=== PATIENT | male | born 1945 | race Caucasian/White ===

== ENCOUNTER 2020-09-28 11:14 | Emergency (ER) | payer MEDICARE, SELFPAY ==
[2020-09-28 11:23] VITALS: BP 117/74; PULSE 89; RESP 16; TEMP 36.9; O2SAT 97
--- NOTE | 2020-09-28 11:45 | ED.WOUNDLAC ---
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 Sister indicates he sustained a minor skin abrasion to his right proximal forearm about a week ago. She now complains of a couple day history of increasing redness with scant crusting on the affected area. No fever, abscess/induration, streaking upward, other rashes. Symptoms are mild, and do not affect range of motion and strength Related Data Home Medications Medication Instructions Recorded Confirmed finasteride mg 09/28/20 mirabegron [Myrbetriq] mg PO 09/28/20 omeprazole 09/28/20 tamsulosin mg PO 09/28/20 tramadol mg 09/28/20 Allergies Allergy/AdvReac Type Severity Reaction Status Date / Time No Known Allergies Allergy Unknown Verified 08/28/15 13:05 Review of Systems Review of Systems: General/Constitutional: No weight loss,fever Eyes: N0: Redness,discharge Ears/Nose/Throat: No: Epistaxis,ear discharge Respiratory: Denies: Hemoptysis Gastrointestinal: No Vomiting, Bleeding-rectal Skin: No Lumps, REPORTS eruption Neurologic: No Focal Weakness,Sz Hematologic: Denies: Petechiae/Purpura Psychiatric: No: Suicida ideationl All Other Systems: Reviewed and Negative [facility] Family History Family History (Updated 01/06/18 @ 10:40 by DOCTOR UNKNOWN) Father Acute myocardial infarction, Onset Age: 47 Mother Acute myocardial infarction, Onset Age: 73 Social History Social History Smoking status: Never smoker Comments At time of signature, agree with nursing past medical, surgical, social and family history. There is no relevant family history pertinent to the presenting complaint Exam Narrative: General Appearance: consolable, Cooperative, Conjunctiva clear Ear: External ear normal Nose: Normal nose, Nare clear Mouth/Throat: Normal appearing Respiratory: Airway patent, No respiratory distress Skin: Warm, Dry; pink, warm, oval area of fairly healing, poorly approximated abrasion at the proximal right forearm, with crusting Neurological: Awake and alert Psychiatric: Normal mood, Normal affect-smiling Course Vital Signs Vital signs: Vital Signs Temperature 98.5 F 09/28/20 11:23 Pulse Rate 89 09/28/20 11:23 Respiratory Rate 16 09/28/20 11:23 Blood Pressure 117/74 09/28/20 11:23 Pulse Oximetry 97 09/28/20 11:23 Temperature 98.5 F 09/28/20 11:23 Pulse Rate 89 09/28/20 11:23 Respiratory Rate 16 09/28/20 11:23 Blood Pressure 117/74 09/28/20 11:23 Pulse Oximetry 97 09/28/20 11:23 Discharge Plan Discharge Clinical Impression: Pruritic condition Cellulitis Qualifiers: Site of cellulitis: extremity Site of cellulitis of extremity: upper extremity Laterality: right Qualified Code(s): L03.113 - Cellulitis of right upper limb Patient Disposition: Home, Self-Care Condition: Stable Instructions: Antibiotic Form, Cellulitis (ED) Additional Instructions: Take clindamycin with food, antiacid and/or probiotic; stop if diarrhea occurs Go to hospital if worsens Prescriptions: New clindamycin HCl 300 mg capsule 300 mg PO TID Qty: 20 RF: 0 mupirocin 2 % ointment 1 applic TOPICAL TID Qty: 30 RF: 2 No Action tramadol 50 mg tablet RF: 0 tamsulosin 0.4 mg capsule PO RF: 0 omeprazole 20 mg capsule,delayed release(DR/EC) RF: 0 finasteride 5 mg tablet RF: 0 Myrbetriq 25 mg tablet extended release 24 hr PO RF: 0 Follow-up/Referrals: Luly Alcala MD [Primary Care Provider] -
== END 2020-09-28 11:53 | disposition home or self-care (01) ==
PROVIDERS: Emergency Provider Emergency Medicine; PCP Internal Medicine
DX: L03.113 Cellulitis of right upper limb (principal); L29.9 Pruritus, unspecified; G80.9 Cerebral palsy, unspecified; Z99.3 Dependence on wheelchair
CPT/HCPCS: 99213; G0463

== ENCOUNTER 2020-09-30 10:56 | Emergency (ER) | payer MEDICARE, SELFPAY ==
[2020-09-30 11:02] VITALS: BP 128/86; PULSE 90; RESP 16; TEMP 36.7; O2SAT 99
--- NOTE | 2020-09-30 12:54 | ED.WOUNDLAC ---
HPI - Wound/Laceration General Chief Complaint: Wound/Laceration Stated Complaint: right arm wound Time Seen by Provider: 09/30/20 11:30 History of Present Illness HPI narrative: Patient is a 75-year-old male who presents with wound and cellulitis to right forearm. Patient's caregiver reports patient had small skin tear approximately 2 days ago. Patient continues to not leave dressing on and she reports increased redness. Patient was seen on 09/28/2020 for same and was started on clindamycin and Lopressor ointment. Caregiver is concerned with increased redness. Patient has taken 2 doses of clindamycin and using the reports from the ointment 1 time prior to arrival in the ED. Related Data Home Medications Medication Instructions Recorded Confirmed finasteride 5 mg PO DAILY 09/28/20 09/30/20 mirabegron [Myrbetriq] 25 mg PO DAILY 09/28/20 09/30/20 omeprazole 20 mg PO DAILY 09/28/20 09/30/20 tamsulosin 0.4 mg PO DAILY 09/28/20 09/30/20 tramadol 50 mg PO PRN 09/28/20 09/30/20 Allergies Allergy/AdvReac Type Severity Reaction Status Date / Time No Known Allergies Allergy Unknown Verified 09/30/20 11:02 Review of Systems Review of Systems: CONSTITUTIONAL: Denies fever, chills, or sweats. EYES: Denies visual changes, redness, or discharge. ENT: Denies rhinorrhea, congestion, sore throat, or otalgia. CARDIOVASCULAR: Denies chest pain, palpitations, or edema. RESPIRATORY: Denies cough or dyspnea. GASTROINTESTINAL: Denies abdominal pain, nausea, vomiting, or diarrhea. GENITOURINARY: Denies dysuria or hematuria. SKIN: Skin tear and redness to right forearm MUSCULOSKELETAL: Denies back pain, joint pain, or myalgia. NEUROLOGIC: Denies headache, numbness, dizziness, or weakness. PSYCHIATRIC: Denies anxiety or depression. [facility] Past Medical History Medical History Anxiety Arthritis Constipation GERD (gastroesophageal reflux disease) Incontinence No natural teeth Nonverbal Perforated ulcer Seizures Septic bursitis Sinusitis Urinary retention Family History Family History Father Acute myocardial infarction, Onset Age: 47 Mother Acute myocardial infarction, Onset Age: 73 Social History Social History (Updated 09/30/20 @ 12:59 by KESHIA hCeek) Smoking status: Never smoker Alcohol intake: never Substance use: never Living arrangements: with family Exam Narrative: GENERAL: Well-appearing, well-nourished, and in no acute distress. HEAD: Normocephalic, atraumatic. EYES: EOMI. No redness or drainage. Conjunctiva are normal. ENT: Mucous membranes pink and moist. CHEST: No respiratory distress. HEART: Regular rate and rhythm. EXTREMITIES: Normal range of motion. No edema. SKIN: Warm and dry. Approximate 6 cm area of erythema and warmth to right forearm, small healing skin tear crusting noted. NEURO: No focal deficits. Alert and oriented x3. Gait steady. PSYCH: Normal affect. No signs of depression or anxiety. Course Vital Signs Vital signs: Vital Signs Temperature 36.7 C 09/30/20 11:02 Pulse Rate 90 09/30/20 11:02 Respiratory Rate 16 09/30/20 11:02 Blood Pressure 128/86 09/30/20 11:02 Pulse Oximetry 99 09/30/20 11:02 Temperature 36.7 C 09/30/20 11:02 Pulse Rate 90 09/30/20 11:02 Respiratory Rate 16 09/30/20 11:02 Blood Pressure 128/86 09/30/20 11:02 Pulse Oximetry 99 09/30/20 11:02 Reviewed. Patient has been instructed to follow-up with his PCP regarding his blood pressure. MDM - Wound/Laceration MDM Narrative Medical decision making narrative: Area of erythema on right forearm, marked. Discussed with patient's mica splitter to continue to monitor for increased redness swelling. Instructed to continue p.o. antibiotics and topical this patient has only been taking for the past day. Patient is afebrile, nontoxic in appear
== END 2020-09-30 13:10 | disposition home or self-care (01) ==
PROVIDERS: Emergency Provider Nurse Practitioner; PCP Internal Medicine
DX: L03.113 Cellulitis of right upper limb (principal); S51.812A Laceration without foreign body of left forearm, initial encounter; M19.90 Unspecified osteoarthritis, unspecified site; K21.9 Gastro-esophageal reflux disease without esophagitis; R03.0 Elevated blood-pressure reading, without diagnosis of hypertension; X58.XXXA Exposure to other specified factors, initial encounter
CPT/HCPCS: 99281

== ENCOUNTER 2021-08-25 01:55 | Day surgery (SDC) | payer MEDICARE, SELFPAY ==
[2021-08-06 14:33] VITALS: BMI 20.3
--- NOTE | 2021-08-25 11:49 | WPDGICN ---
Assessment and Plan Assessment and plan (1) Weight loss: Code(s): R63.4 - Abnormal weight loss Status: Acute Assessment and Plan: Patient referred for GI endoscopy because of weight loss. Colonoscopy an EGD will be performed on request primary care service. (2) Chronic constipation: Code(s): K59.09 - Other constipation Status: Acute Assessment and Plan: Patient reports reported only have 1 bowel movement a week. Stool softener such as Colace and Metamucil advised to be taken on a regular basis. (3) Mental deficiency: Code(s): F79 - Unspecified intellectual disabilities Status: Acute Assessment and Plan: Patient nonverbal unable to give additional history reported to have mental deficiency since . GI Consult Note Consult date/time: 08/25/21 11:49 Reason for consult: weight loss HPI: Harry Hensley is a 76 year old male with a history of mental retardation. He has a financial retirement plan specialist who reports that his clothes are becoming baggy. The patient has had weight loss. She states she is unable to weigh him but estimates he has lost more than 15lb over the last year to. He apparently has a good appetite. There is no reason to suspect pain. Patient is nonverbal and history is obtained with the help of his caregiver. Patient's bowel habits revealed that he only has a bowel movement 1 day a week. This has been his habit for more than 20 years. She reports 20 years ago had surgery in his abdomen felt that possibly be from an ulcer. Patient has had no obvious blood in his stools. Eats well and has no pain referred for GI endoscopy because weight loss. Review of Systems Review of Systems: Review of systems from caregiver and patient noncontributory. [facility] Past Medical History Medical History Anxiety Arthritis Constipation GERD (gastroesophageal reflux disease) Incontinence No natural teeth Nonverbal Perforated ulcer Seizures Septic bursitis Sinusitis Urinary retention Family History Family History Father Acute myocardial infarction, Onset Age: 47 Mother Acute myocardial infarction, Onset Age: 73 Social History Social History (Updated 09/30/20 @ 12:59 by Maylin Galvez, KESHIA) Smoking status: Never smoker Alcohol intake: never Substance use: never Substance use type: does not use Living arrangements: with family Additional living arrangements comments: sister is caregiver Spiritual care concerns: No Meds Home Medications and Allergies Home Medications Medication Instructions Recorded Confirmed Type finasteride 5 mg tablet 5 mg PO DAILY 09/28/20 08/06/21 History omeprazole 20 mg capsule,delayed 20 mg PO DAILY 09/28/20 08/06/21 History release tamsulosin 0.4 mg capsule 0.4 mg PO DAILY 09/28/20 08/06/21 History tramadol 50 mg tablet 50 mg PO PRN 09/28/20 08/06/21 History alendronate 70 mg-cholecalciferol 1 tablet PO WEEKLY 08/06/21 08/06/21 History (vitamin D3) 5,600 unit tablet Allergies Allergy/AdvReac Type Severity Reaction Status Date / Time No Known Allergies Allergy Unknown Verified 08/25/21 11:48 Exam Narrative: Physical exam reveals patient to be comfortable sitting in a wheelchair. HEENT exam reveals him to be nonverbal. He is anicteric. Lungs are clear to auscultation and percussion. Heart is without murmur. Abdomen bowel sounds present soft nontender with no organomegaly. Healedmidline scar. Digital external rectal exam normal.
[2021-08-25 11:50] VITALS: BP 155/78; PULSE 74; RESP 18; TEMP 36.8; O2SAT 98
--- NOTE | 2021-08-25 11:53 | SUR.PREOP ---
Patient unable to stand on his own- unable to obtain weight.
[2021-08-25] MEDS: LACTATED RINGERS 1,000 ML 150 ML IV CONT (11:57)
--- NOTE | 2021-08-25 11:59 | WPDANESEPPF ---
Anes - Initial Pre Proc Eval Procedure: Operation Date: 08/25/21 12:30 Proposed Procedures p Esophagogastroduodenoscopy & Colonoscopy - Richard Godfrey MD Date/Time: 08/25/21 11:59 Surgeon: Richard Godfrey MD Pre Op Diagnosis: weight loss, change in bowel habits Patient Data Age: 76 Gender: M Height: 1.7 m Weight: 59 kg Last Vital Signs Temp 98.3 F 08/25/21 11:50 Pulse 74 08/25/21 11:50 Resp 18 08/25/21 11:50 BP 155/78 H 08/25/21 11:50 Pulse Ox 98 08/25/21 11:50 O2 Del Method Room Air 08/25/21 11:50 Allergies Allergy/AdvReac Type Severity Reaction Status Date / Time No Known Allergies Allergy Unknown Verified 08/25/21 11:48 Home Medications Medication Instructions Recorded Confirmed Type finasteride 5 mg tablet 5 mg PO DAILY 09/28/20 08/06/21 History omeprazole 20 mg capsule,delayed 20 mg PO DAILY 09/28/20 08/06/21 History release tamsulosin 0.4 mg capsule 0.4 mg PO DAILY 09/28/20 08/06/21 History tramadol 50 mg tablet 50 mg PO PRN 09/28/20 08/06/21 History alendronate 70 mg-cholecalciferol 1 tablet PO WEEKLY 08/06/21 08/06/21 History (vitamin D3) 5,600 unit tablet Patient hx anesthesia problems: none Family hx anesthesia problems: none Results Review: All pre-operative results and documents have been reviewed as part of the pre-operative evaluation. [facility] Past Medical History Medical History Anxiety Arthritis Constipation GERD (gastroesophageal reflux disease) Incontinence No natural teeth Nonverbal Perforated ulcer Seizures Septic bursitis Sinusitis Urinary retention Family History Family History Father Acute myocardial infarction, Onset Age: 47 Mother Acute myocardial infarction, Onset Age: 73 Social History Social History (Updated 09/30/20 @ 12:59 by Maylin Galvez, KESHIA) Smoking status: Never smoker Alcohol intake: never Substance use: never Substance use type: does not use Living arrangements: with family Additional living arrangements comments: sister is caregiver Spiritual care concerns: No Anes - Eval Final PreProcedure Day of Procedure 08/25/21 11:59 Patient weight: normal Heart: regular rate and rhythm Lungs: clear to auscultation Airway: Mallampati scale class II Neurological: alert and oriented Last oral intake: >/= 8 hours ASA classification: III Emergent: no Anesthetic plan: proceed Anesthesia type and monitoring: general GIVS and standard monitoring Results Review: All pre-operative results and documents have been reviewed as part of the pre-operative evaluation. Informed Consent: The patient's anesthetic plan and its attendant risks and benefits were discussed with the patient/family/POA. Questions were solicited and answers provided to the satisfaction of the patient/family/POA.
[2021-08-25 12:41] VITALS: BP 109/63; PULSE 78; RESP 19; O2SAT 96
[2021-08-25 12:51] VITALS: BP 105/64; PULSE 73; RESP 16; O2SAT 94
[2021-08-25 13:01] VITALS: BP 121/68; PULSE 69; RESP 14; O2SAT 97
== END 2021-08-25 13:24 | disposition home or self-care (01) ==
PROVIDERS: PCP Internal Medicine; Visit Provider Internal Medicine Gastroenterology
PROC: 0DJ08ZZ Inspection of Upper Intestinal Tract, Via Natural or Artificial Opening Endoscopic (ICD-10-PCS; CPT 43235; principal; 2021-08-25 12:30)
DX: R63.4 Abnormal weight loss (principal); K29.40 Chronic atrophic gastritis without bleeding; R19.5 Other fecal abnormalities; F41.9 Anxiety disorder, unspecified; K21.9 Gastro-esophageal reflux disease without esophagitis; G40.909 Epilepsy, unspecified, not intractable, without status epilepticus; K59.09 Other constipation; F79 Unspecified intellectual disabilities
CPT/HCPCS: 45378; 43235; J2001; J2704; J7120

== ENCOUNTER 2021-10-14 01:45 | Day surgery (SDC) | payer MEDICARE, SELFPAY ==
[2021-09-25 14:09] VITALS: BMI 25.4
--- NOTE | 2021-10-14 09:05 | SUR.PREOP ---
Patient with sister and personal counselor. Sister states he only drank half of the golytely bowel prep and then refused the rest. He has had two bowel movements. Dr Godfrey at bedside and instructed to follow up with primary doctor to discuss other options.
== END 2021-10-14 09:05 | disposition home or self-care (01) ==
PROVIDERS: PCP Internal Medicine; Visit Provider Internal Medicine Gastroenterology
PROC: 0DJD8ZZ Inspection of Lower Intestinal Tract, Via Natural or Artificial Opening Endoscopic (ICD-10-PCS; CPT 45378; principal; 2021-10-14 09:30)
DX: K59.09 Other constipation (principal); Z53.8 Procedure and treatment not carried out for other reasons
CPT/HCPCS: 99211; G0463

== ENCOUNTER 2022-02-09 11:46 | Outpatient (CLI) | payer MEDICARE, SELFPAY ==
[2022-02-09 20:55] LABS: Kit Draw Collected
== END 2022-02-09 11:47 | disposition home or self-care (01) ==
LOC: ANHGOSHLAB 11:48
PROVIDERS: PCP Emergency Medicine; Visit Provider Emergency Medicine
DX: R73.02 Impaired glucose tolerance (oral) (principal)
CPT/HCPCS: 36415

== ENCOUNTER → 2022-02-17 09:46 | Outpatient (CLI) | payer MEDICARE, SELFPAY ==
--- NOTE | ~2022-02-17 | CT_ITS ---
Clinical Indication: Abnormal weight loss CT Scan of the Chest, Abdomen, and Pelvis without Contrast: Technique: Contiguous sections were acquired throughout the chest, abdomen, and pelvis without oral o r IV contrast administration. Dose reduction technique was used on this scan by utilizing automated e xposure control and iterative reconstruction technique. The dose-length product (DLP) was 582.59 mGy- cm. Findings: There is no evidence of any significant mediastinal, hilar or axillary lymphadenopathy. The mediastin al soft tissues appear normal. There is no evidence of pleural or pericardial effusion. The lungs are clear, aside from minimal dependent atelectatic/hypoventilatory changes. The liver, spleen, pancreas, adrenals and kidneys are within normal limits. Gallbladder not clearly v isualized. No evidence of aortic aneurysm. No lymphadenopathy. No bowel obstruction or bowel wall thickening. There is no evidence to suggest acute appendicitis. Urinary bladder is unremarkable. Prostate gland and seminal vesicles are unremarkable. 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 Impression: No acute abnormality seen. No evidence for malignancy or metastatic disease. Reviewed, dictated and finalized at [facility]. BOSS Impression: No acute abnormality seen. No evidence for malignancy or metastatic disease.
== END ==
PROVIDERS: PCP Emergency Medicine; Visit Provider Emergency Medicine
DX: R63.4 Abnormal weight loss (principal)
CPT/HCPCS: 71250; 74176

== ENCOUNTER 2022-07-14 10:16 | Outpatient (CLI) | payer MEDICARE, SELFPAY ==
--- NOTE | ~2022-07-14 | XR_ITS ---
EXAMINATION: XR barium swallow DATE: 07/14/2022 11:00 INDICATION: Choking while eating and drinking. TECHNIQUE: The patient drank thin barium. Fluoroscopy of the hypopharynx and esophagus was performed. Fluoroscopy exposure time was 0.9 minutes. The total number of images was 264. The dose-area product was 0.845 Gy-cm^2. COMPARISON: CT 02/17/2022 FINDINGS: There is aspiration of contrast, which caused coughing. There is no mass or stricture of th e esophagus. There is normal primary and secondary esophageal peristalsis. Abnormal tertiary waves we re noted. There is no hiatal hernia. IMPRESSION: 1. Aspiration of contrast. Consider a modified barium swallow. 2. Mild esophageal dysmotility. Reviewed, dictated and finalized at location A.
== END 2022-07-14 10:17 | disposition home or self-care (01) ==
PROVIDERS: PCP Emergency Medicine; Visit Provider Nurse Practitioner Family
DX: R13.10 Dysphagia, unspecified (principal); K30 Functional dyspepsia
CPT/HCPCS: 74220

== ENCOUNTER 2022-08-15 15:47 | Emergency (ER) | payer MEDICARE, SELFPAY ==
[2022-08-15 15:57] VITALS: BP 118/80; PULSE 92; RESP 16; TEMP 36.7; O2SAT 98
--- NOTE | 2022-08-15 16:17 | ED.SKABFB ---
HPI - Skin/Abscess/Foreign Bdy General Chief complaint: Skin/Abscess/Foreign Body Stated complaint: R ARM INJURY Time Seen by Provider: 08/15/22 16:20 Source: patient, RN notes reviewed and old records reviewed Mode of arrival: wheelchair Limitations: no limitations History of Present Illness HPI narrative: 77 year old male accompanied by sister who is patient's caregiver presents to express care with complaint of new skin tear to the right lower anterior arm which was noted earlier this past week. Patient was seen previously for a skin tear to right forearm at [facility] clinic at site above present site which is healing. Tissue of new skin tear appears that it may of been blister but able to pull upper tissue over wound with use of Q-TIP and triple antibiotic ointment, no drainage noted. Sister is caregiver and patient has history of mental retardation and is nonverbal.able to stand to transfer only, is in wheelchair. MD complaint: other (skin tear) Onset (ago): day(s) (3-4 days ago) Tetanus up to date: no Treatments prior to arrival: other (cleansed mupirocin ointment) Related Data Home Medications Medication Instructions Recorded Confirmed alendronate 70 mg-cholecalciferol 1 tablet PO WEEKLY 08/06/21 08/15/22 (vitamin D3) 5,600 unit tablet mupirocin 2 % topical ointment See Rx Instructions .Route .COMPLEX 08/10/22 08/15/22 Allergies Allergy/AdvReac Type Severity Reaction Status Date / Time No Known Allergies Allergy Unknown Verified 08/10/22 10:26 Review of Systems Review of Systems: CONSTITUTIONAL: Denies fever, chills, or sweats. CARDIOVASCULAR: Denies chest pain, palpitations, or edema. RESPIRATORY: Denies cough or dyspnea. SKIN: Reports new skin tear type wound to right anterior lower forearm distal to previous wound MUSCULOSKELETAL: Denies joint pain or myalgia. NEUROLOGIC: Denies headache, numbness, or weakness. All systems reviewed & are unremarkable except as noted in HPI and below PMFSH Past Medical History Medical History (Updated 08/17/22 @ 09:46 by Siri Carbone NP) Anxiety Arthritis Constipation GERD (gastroesophageal reflux disease) Incontinence No natural teeth Nonverbal Perforated ulcer required surgery Seizures Septic bursitis Sinusitis Urinary retention Family History Family History Father Acute myocardial infarction, Onset Age: 47 Mother Acute myocardial infarction, Onset Age: 73 Social History Social History Smoking status: Never smoker Alcohol intake: never Substance use: never Substance use type: does not use Lack of Transportation: No Lack of Food: Never True Current Housing: I Have Housing Concerned About Future Housing: No Difficulty Paying Gas/Electric Bills: No Difficulty Paying for Meds: No Currently Unemployed: No Education: Never Attended/Kindergarten Only Living arrangements: other Additional living arrangements comments: lives with legal guardian Spiritual care concerns: No Comments At time of signature, agree with nursing past medical, surgical, social and family history. There is no relevant family history pertinent to the presenting complaint Exam Narrative: GENERAL: Well-appearing, well-nourished, and in no acute distress.is nonverbal HEAD: Normocephalic, atraumatic. EYES: PERRLA, conjunctivae clear, and EOMI. ENT: Mucous membranes moist. Oropharynx without edema, erythema or lesions. edentulous NECK: Supple. No lymphadenopathy CHEST: Clear to auscultation. No respiratory distress.SAO2 98% on room air HEART: Regular rate and rhythm. SKIN: Warm, dry.? 25 cent piece size area to right posterior lower arm wound appears may of been blister but able to pull top layer of skin over wound bed using Q-tip and triple antibiotic ointment, no drainage noted or acute surrounding redness o
[2022-08-15] MEDS: TETANUS,DIPHTHERIA,AC PERTUSSIS ADULT (0.5 ML) BOOSTRIX IM (16:50)
== END 2022-08-15 17:04 | disposition home or self-care (01) ==
PROVIDERS: Emergency Provider Registered Nurse; PCP Emergency Medicine
DX: S51.811A Laceration without foreign body of right forearm, initial encounter (principal); X58.XXXA Exposure to other specified factors, initial encounter; Z23 Encounter for immunization; F79 Unspecified intellectual disabilities; K21.9 Gastro-esophageal reflux disease without esophagitis
CPT/HCPCS: 90471; 90715; 99213; G0463

== ENCOUNTER 2022-08-17 11:33 | Observation (INO) | payer MEDICARE, SELFPAY ==
[2022-08-17] VITALS (10 sets, daily range): BP systolic 112–140; BP diastolic 68–74; PULSE 73–94; RESP 11–19; TEMP 36.2–37.1; O2SAT 92–98; BMI 20.1
--- NOTE | 2022-08-17 12:11 | ED.EXTPRO ---
HPI - Extremity Problem General Chief complaint: Extremity Problem,Nontraumatic Stated complaint: right arm swelling/redness Time Seen by Provider: 08/17/22 11:54 History of Present Illness HPI Narrative: 77-year-old male presented to the emergency department for evaluation of worsening cellulitis of the right arm. Patient was started on topical antibiotics approximately 1 week ago and the infection did not resolve. Patient had worsening of infection and was started on oral antibiotics over the weekend, doxycycline. Sister states that today the patient has had worsening swelling and redness even after starting antibiotics. Related Data Home Medications Medication Instructions Recorded Confirmed alendronate 70 mg-cholecalciferol 1 tablet PO WEEKLY 08/06/21 08/17/22 (vitamin D3) 5,600 unit tablet tramadol 50 mg tablet See Rx Instructions .Route .COMPLEX 08/17/22 08/17/22 Allergies Allergy/AdvReac Type Severity Reaction Status Date / Time No Known Allergies Allergy Unknown Verified 08/17/22 14:46 Review of Systems Review of Systems: All systems reviewed & are unremarkable except as noted in HPI and below PMFSH Past Medical History Medical History (Updated 08/17/22 @ 22:02 by Bar Vyas MD) Anxiety Arthritis BPH (benign prostatic hyperplasia) Constipation GERD (gastroesophageal reflux disease) Incontinence No natural teeth Nonverbal Perforated ulcer required surgery Seizures Septic bursitis Sinusitis Urinary retention Surgical History Surgical History (Updated 08/17/22 @ 22:00 by Camelia Jane NP) H/O oral surgery Family History Family History Father Acute myocardial infarction, Onset Age: 47 Mother Acute myocardial infarction, Onset Age: 73 Social History Social History Social History: He lives with his sister. Never smoked. He is mentally challenged. Code status full code Smoking status: Never smoker Alcohol intake: never Substance use: never Substance use type: does not use Lack of Transportation: No Lack of Food: Never True Current Housing: I Have Housing Concerned About Future Housing: No Difficulty Paying Gas/Electric Bills: No Difficulty Paying for Meds: No Currently Unemployed: No Education: Never Attended/Kindergarten Only Difficulty w/ Childcare or Family Care: No Living arrangements: other Additional living arrangements comments: lives with legal guardian Spiritual care concerns: No Exam Narrative: APPEARANCE: Well appearing, no pain, no distress, well-nourished. HEAD: normocephalic, atraumatic. EYES: PERRLA/EOMI, conjunctivae clear. NOSE: Normal no drainage NECK: Supple. No adenopathy, no masses. RESPIRATORY: Airway patent, respirations nonlabored. Clear to auscultation bilaterally, no rales, rhonchi, wheezing. CARDIOVASCULAR: Regular rate and rhythm without murmurs rubs or gallops. ABDOMINAL: Soft, nontender, nondistended, normal bowel sounds MUSCULOSKELETAL: Moves all extremities. Strength/ROM intact, No edema, No calf tenderness. NEURO: Alert. Cranial nerves II through XII intact. Grossly intact SKIN: Circumferential erythema/cellulitis of the right forearm Course Course Emergency Course: 77-year-old male presenting to the ED for evaluation of worsening cellulitis of the right forearm. Blood cultures were drawn and patient was started on cefazolin. Patient and family were updated on the results of the work-up and plan for admission for IV antibiotics. Case was discussed with hospitalist and patient was accepted for admission Vital Signs Vital signs: Vital Signs Temperature 97.1 F L 08/17/22 11:37 Pulse Rate 94 08/17/22 11:37 Respiratory Rate 16 08/17/22 11:37 Blood Pressure 112/70 08/17/22 11:37 Pulse Oximetry 96 08/17/22 11:37 Temperature 98.4 F
[2022-08-17] MEDS: ceFAZolin 1 GM/NS 50 ML 1 GM/50 ML BAG IVPB ×2 (12:32→21:56)
[2022-08-17 12:39] LABS: Basophils Percent Auto 0.6 % (0.2-1.2); Eosinophils Absolute Auto 0.1 K/mm3 (0-0.3); Eosinophils Percent Auto 2.1 % (0-4.4); Hematocrit 43.5 % (42.0-52.0); Hemoglobin 14.6 g/dL (14.0-18.0); Immature Granulocyte Absolute 0.02 K/mm3 (0.00-0.031); Immature Granulocyte Percent A 0.4 % (0-0.5); Lymphocytes Absolute Auto 0.99 K/mm3 (0.9-3.2); Lymphocytes Percent Auto 20.4 % (18.3-44.2); Mean Corpuscular HGB Conc 33.6 g/dl (32-36); Mean Corpuscular Hemoglobin 31.5 pg (26-34); Mean Corpuscular Volume 93.8 fl (80-100); Monocytes Absolute Auto 0.6 K/mm3 (0.1-0.6); Monocytes Percent Auto 11.5 % (2.6-8.5); Neutrophils Absolute Auto 3.2 K/mm3 (1.3-6.7); Platelet Count Result 166 k/mm3 (150-375); Red Blood Count 4.64 M/mm3 (4.6-6.20); Red Cell Distribution Width 13.6 % (11.5-14.5); White Blood Count 4.9 K/mm3 (4.5-10.0)
[2022-08-17 12:49] LABS: INR 1.1; Partial Thromboplastin Time 30.1 SECONDS (22.3-36.8); Prothrombin Time 14.3 Seconds (11.1-14.7)
[2022-08-17 12:50] LABS: Alanine Aminotransferase 19 U/L (6-50); Albumin Level 3.7 g/dL (3.5-5.1); Alkaline Phosphatase 83 U/L (38-126); Anion Gap 0 mmol/L (8-16); Aspartate Amino Transferase 29 U/L (17-59); Bilirubin,Total 2.9 mg/dL (0.2-1.3); Blood Urea Nitrogen 19 mg/dL (9-20); CRP < 0.5 mg/dL (<1.0); Calcium 8.4 mg/dL (8.4-10.2); Carbon Dioxide 32 mmol/L (22-30); Chloride 107 mmol/L (98-107); Estimated CRCL calculation 70 ml/min; Estimated Glomerular Filt Rate > 60; Glucose 74 mg/dL (65-110); Potassium 4.1 mmol/L (3.4-5.0); Sodium 139 mmol/L (137-145)
--- NOTE | 2022-08-17 14:17 | ADMGEN ---
This patient, Harry Hensley, was admitted to Medical Room 261-01. Patient/family oriented to hospital policies and general routines including ID bracelet, bed and alarms, visiting hours, pain management, procedures, bathroom and other care routines, personal items, smoking policy, room service/diet, and visiting hours. Information on how to activate the Rapid Response Team has been discussed. Patient/Family are encouraged to report perceived risks to care and to ask questions if they do not understand what they are told or what they should do.
--- NOTE | 2022-08-17 16:31 | PM.IMHP ---
H&P: HPI History of Present Illness Date/Time: 08/17/22 16:31 Chief Complaint: Redness to right arm Narrative: This is a 77-year-old mentally delayed patient who is nonverbal. The patient came into the emergency room for worsening cellulitis of the right arm. The patient has been placed on mupirocin ointment and has been using it for the last week. The patient lives with his sister who cares for him. His sister stated that the redness continue to get worse. The patient was started on oral antibiotics over the weekend which was doxycycline. Today there is worsened swelling and redness even after starting the oral antibiotics. The patient's sister's answering the questions for him. Although he has no leukocytosis he has extensive redness throughout the right forearm. The patient was started on Ancef as per cellulitis antibiotic stewardship. Patient is being admitted to observation status on the date of service of 08/17/2022. Review of Systems Review of Systems: All systems reviewed & are unremarkable except as noted in HPI and below Constitutional: Constitutional: Reports as per HPI and Reports no additional constitutional complaints Eyes: Eyes: Reports as per HPI and Reports no additional eye complaints ENT: Reports system reviewed and no additional complaints, except as documented and Reports Normal hearing present Cardiovascular: Cardiovascular: Reports no additional cardiovascular complaints Respiratory: Respiratory: Reports no additional respiratory complaints and Reports no additional respiratory complaints Gastrointestinal: Gastrointestinal: Reports as per HPI and Reports no additional gastrointestinal complaints Musculoskeletal: Musculoskeletal: Reports no additional musculoskeletal complaints Integumentary/Breasts: Skin/Breast: Reports system reviewed and no additional complaints, except as docu and Reports as per HPI Neurologic: Reports system reviewed and no additional complaints, except as documented, Reports as per HPI and Reports Normal hearing present Psychiatric: Psychiatric: Reports no additional psychiatric complaints and Reports as per HPI Endocrine: Endocrine: Reports no additional endocrine complaints Hematologic/Lymphatic: Hematologic/Lymphatic: Reports no additional hematologic/lymphatic complaints Allergic/Immunologic: Allergic/Immunologic: Reports no additional allergic/immunologic complaints [facility] Past Medical History Medical History (Updated 08/17/22 @ 22:02 by Bar Vyas MD) Anxiety Arthritis BPH (benign prostatic hyperplasia) Constipation GERD (gastroesophageal reflux disease) Incontinence No natural teeth Nonverbal Perforated ulcer required surgery Seizures Septic bursitis Sinusitis Urinary retention Surgical History Surgical History (Updated 08/17/22 @ 22:00 by Camelia Jane NP) H/O oral surgery Family History Family History Father Acute myocardial infarction, Onset Age: 47 Mother Acute myocardial infarction, Onset Age: 73 Social History Social History (Updated 08/17/22 @ 22:01 by Camelia Jane NP) Social History: He lives with his sister. Never smoked. He is mentally challenged. Code status full code Smoking status: Never smoker Alcohol intake: never Substance use: never Substance use type: does not use Lack of Transportation: No Lack of Food: Never True Current Housing: I Have Housing Concerned About Future Housing: No Difficulty Paying Gas/Electric Bills: No Difficulty Paying for Meds: No Currently Unemployed: No Education: Never Attended/Kindergarten Only Difficulty w/ Childcare or Family Care: No Living arrangements: other Additional living arrangements comments: lives with legal guardian Spiritual care concerns: No Meds Home Medications and Allergies Home Medications Medication Instructions Recorded Confir
[2022-08-17] MEDS: MUPIROCIN 2% OINT 22 GM TUBE 1 APPLIC TOPICAL (21:55)
[2022-08-17] MEDS: traMADol HCL (*CRX) 50 MG TABLET BY MOUTH (21:56)
[2022-08-18 04:55] VITALS: BP 143/76; PULSE 89; RESP 16; TEMP 37.1; O2SAT 96
[2022-08-18] MEDS: HALOPERIDOL LACTATE 5 MG/ML VIAL IM (05:08)
[2022-08-18 05:57] LABS: Basophils Percent Auto 0.3 % (0.2-1.2); Eosinophils Absolute Auto 0.1 K/mm3 (0-0.3); Eosinophils Percent Auto 1.4 % (0-4.4); Hematocrit 41.8 % (42.0-52.0); Hemoglobin 14.2 g/dL (14.0-18.0); Immature Granulocyte Absolute 0.03 K/mm3 (0.00-0.031); Immature Granulocyte Percent A 0.5 % (0-0.5); Lymphocytes Absolute Auto 0.99 K/mm3 (0.9-3.2); Lymphocytes Percent Auto 15.3 % (18.3-44.2); Mean Corpuscular Hemoglobin 31.4 pg (26-34); Mean Corpuscular Volume 92.5 fl (80-100); Mean Platelet Volume 9.3 fl (7.4-10.4); Monocytes Absolute Auto 0.7 K/mm3 (0.1-0.6); Monocytes Percent Auto 10.6 % (2.6-8.5); Neutrophils Absolute Auto 4.7 K/mm3 (1.3-6.7); Neutrophils Percent Auto 71.9 % (45.5-73.1); Platelet Count Result 143 k/mm3 (150-375); Red Blood Count 4.52 M/mm3 (4.6-6.20); Red Cell Distribution Width 13.2 % (11.5-14.5); White Blood Count 6.5 K/mm3 (4.5-10.0)
[2022-08-18 06:06] LABS: Alanine Aminotransferase 19 U/L (6-50); Albumin Level 3.5 g/dL (3.5-5.1); Alkaline Phosphatase 86 U/L (38-126); Anion Gap 4 mmol/L (8-16); Aspartate Amino Transferase 31 U/L (17-59); Bilirubin,Total 3.4 mg/dL (0.2-1.3); Blood Urea Nitrogen 16 mg/dL (9-20); Calcium 8.3 mg/dL (8.4-10.2); Carbon Dioxide 28 mmol/L (22-30); Chloride 106 mmol/L (98-107); Estimated CRCL calculation 76 ml/min; Estimated Glomerular Filt Rate > 60; Glucose 88 mg/dL (65-110); Magnesium 1.9 mg/dL (1.6-2.3); Potassium 3.5 mmol/L (3.4-5.0); Sodium 138 mmol/L (137-145)
[2022-08-18] MEDS: ceFAZolin 1 GM/NS 50 ML 1 GM/50 ML BAG IVPB (06:10)
[2022-08-18 06:16] LABS: Lactic Acid Reflex 1.1 mmol/L (0.7-2.0)
[2022-08-18] MEDS: MUPIROCIN 2% OINT 22 GM TUBE 1 APPLIC TOPICAL (08:00)
[2022-08-18] MEDS: FINASTERIDE 5 MG TABLET PO (08:01)
[2022-08-18] MEDS: PANTOPRAZOLE 40 MG TABLET PO (08:01)
[2022-08-18] MEDS: TAMSULOSIN HCL 0.4 MG CAPSULE 0.8 MG PO (08:01)
[2022-08-18] MEDS: traMADol HCL (*CRX) 50 MG TABLET BY MOUTH (08:02)
--- NOTE | 2022-08-18 11:29 | PM.DS ---
DS: Admitting Diagnosis Discharge Date August 18, 2022 Admitting Diagnosis Right arm cellulitis DS: Discharge Diagnosis Discharge Diagnosis (1) Cellulitis: Code(s): L03.90 - Cellulitis, unspecified Status: Acute Assessment and Plan: Continue with Ancef. Blood cultures are pending. The patient had been prescribed mupirocin and doxycycline outpatient. The patient failed outpatient therapy. (2) BPH (benign prostatic hyperplasia): Code(s): N40.0 - Benign prostatic hyperplasia without lower urinary tract symptoms Status: Acute Assessment and Plan: Continue with finasteride (3) Severe intellectual disabilities: Code(s): F72 - Severe intellectual disabilities Status: Acute Assessment and Plan: The patient's sister's answering the questions for him. The patient is mostly nonverbal. DS: Summary Hospital Course Hospital Course: Admitted for right arm cellulitis. Patient received Ancef in the hospital and did exceptionally well. Swelling and erythema is much improved. He can be discharged on Bactrim. Time Spent with Patient Time attestation: Total time spent providing and/or coordinating discharge services: Exam Const: General: cooperative, healthy appearing, comfortable, no acute distress, well developed, alert, awake, Physically active, average body habitus and thin Nutritional Appearance: average body habitus and thin Orientation/consciousness: oriented to person, oriented to place, oriented to time and patient oriented x3 Limitations: no limitations HENMT: Head: normal to inspection, No palpable skull fracture present, normocephalic and atraumatic Ears: hearing grossly normal bilaterally and external ears normal Face/Nose/Sinus: Normal external nose present and Normal nares present Eyes: General: appearance normal, both eyes and all related structures Alignment and Position: alignment normal Periorbital: periorbital findings normal Eyelids: eyelids normal Sclera: sclerae normal Pupils: Equal, round and reactive pupils present EOM: EOMs intact bilaterally Neck: Neck: normal visual inspection, full ROM, no lymphadenopathy, trachea midline and supple Chest: Chest palpation & inspection: normal inspection of the chest Resp: Effort & Inspection: normal respiratory effort Auscultation: clear to auscultation bilaterally Cardio: Palpation: normal PMI Rate: regular rate Rhythm: regular rhythm Heart sounds: S1 normal heart sound present and S2 normal heart sound present Peripheral pulses: Peripheral pulses 2+ throughout GI: Inspection: normal to inspection Auscultation: normal bowel sounds Rectal Exam: deferred Back/Spine/Pelvis: Cervical Spine: cervical ROM normal Skin: General skin exam: normal color Lesions: no lesions Rashes: no rashes Trauma: no lacerations or abrasions Wounds: no wounds Hair: normal Nails: normal Neuro: General: oriented to person, oriented to place, oriented to time and patient oriented x3 Cranial nerves: Yes Equal, round and reactive pupils present and Yes Normal hearing present Cognition (Neuro): normal cognition Speech: normal speech Motor exam (neuro): 5/5 motor strength present throughout Sensory Exam: normal sensation Extrem: General: normal to inspection Right upper extremity: elbow/forearm (Redness throughout right forearm. No drainage noted.) tenderness and swelling Left upper extremity: normal to inspection and shoulder/upper arm Right lower extremity: normal to inspection Left lower extremity: normal to inspection Psych: Appearance: grossly normal Mental Status: mental status grossly normal Speech and movement: Normal speech and movement present Affect: normal affect Attitude: cooperative Thought process: Normal thought process present Insight: Good insight present (Psych) Judgement: Good judgement present (Psych) DS: Data Data Completed and Pending Labs on day of discharge: Labs from last 24 hours 06
== END 2022-08-18 12:09 | disposition home or self-care (01) ==
LOC: ANHED 12:21 → ANH2MED 13:24
PROVIDERS: Nurse Practitioner; Admitting Provider Chiropractor; Emergency Provider Emergency Medicine; PCP Emergency Medicine; Visit Provider Chiropractor
DX: L03.113 Cellulitis of right upper limb (principal); B96.20 Unspecified Escherichia coli [E. coli] as the cause of diseases classified elsewhere; N40.0 Benign prostatic hyperplasia without lower urinary tract symptoms; F72 Severe intellectual disabilities; F41.9 Anxiety disorder, unspecified; K21.9 Gastro-esophageal reflux disease without esophagitis; Z79.891 Long term (current) use of opiate analgesic; Z79.899 Other long term (current) drug therapy
CPT/HCPCS: 36415; 80053; 83605; 83735; 84443; 85025; 85610; 85730; 86140; 87040; 87070; 87077; 87186; 87205; 96365; 96366; 96372; 99285; A9270; G0378; J0690; J1630

== ENCOUNTER 2022-08-30 11:27 | Emergency (ER) | payer MEDICARE, SELFPAY ==
[2022-08-30] VITALS (18 sets, daily range): BP systolic 120–164; BP diastolic 63–93; PULSE 77–101; RESP 13–26; TEMP 36.3; O2SAT 98–100
--- NOTE | 2022-08-30 13:34 | PC.NURSE ---
Pt's family states since the beginning of the week he has been dealing with increased frequency and pain while urinating. Pt wears a depends and family states that he has had two full diapers since arriving to ED. Pt is non verbal. Hx MR, hip issues on left hip.
--- NOTE | 2022-08-30 14:17 | ED.MALEGU ---
HPI - Male Genitourinary General Chief complaint: Urogenital-Male Stated complaint: uti? Time Seen by Provider: 08/30/22 13:23 History of Present Illness HPI Narrative: Patient is a 77-year-old male nonverbal at baseline due to intellectual delay presenting with increased urinary frequency. Patient's sister is at bedside and provides the history. She is his primary caregiver. States that he has been urinating much more frequently than normal. States that he has accidentally wet himself a couple times. States that he has also been more tired than usual. He has not complained of abdominal pain. No nausea or vomiting. No diarrhea. States he was recently treated for cellulitis which has resolved. Related Data Home Medications Medication Instructions Recorded Confirmed alendronate 70 mg-cholecalciferol 1 tablet PO WEEKLY 08/06/21 08/17/22 (vitamin D3) 5,600 unit tablet tramadol 50 mg tablet See Rx Instructions .Route .COMPLEX 08/17/22 08/17/22 Allergies Allergy/AdvReac Type Severity Reaction Status Date / Time No Known Allergies Allergy Unknown Verified 08/30/22 13:39 Review of Systems Review of Systems: All systems reviewed & are unremarkable except as noted in HPI and below PMFSH Past Medical History Medical History Anxiety Arthritis BPH (benign prostatic hyperplasia) Constipation GERD (gastroesophageal reflux disease) Incontinence No natural teeth Nonverbal Perforated ulcer required surgery Seizures Septic bursitis Sinusitis Urinary retention Surgical History Surgical History H/O oral surgery Family History Family History Father Acute myocardial infarction, Onset Age: 47 Mother Acute myocardial infarction, Onset Age: 73 Social History Social History Social History: He lives with his sister. Never smoked. He is mentally challenged. Code status full code Smoking status: Never smoker Alcohol intake: never Substance use: never Substance use type: does not use Lack of Transportation: No Lack of Food: Never True Current Housing: I Have Housing Concerned About Future Housing: No Difficulty Paying Gas/Electric Bills: No Difficulty Paying for Meds: No Currently Unemployed: No Education: Never Attended/Kindergarten Only Difficulty w/ Childcare or Family Care: No Living arrangements: other Additional living arrangements comments: lives with legal guardian Spiritual care concerns: No Exam Narrative: GENERAL: Nontoxic, in no acute distress HEAD: Normocephalic, atraumatic. EYES: PERRLA and EOMI. ENT: Nares clear, no rhinorrhea or epistaxis. Mucous membranes moist. Edentulous NECK: Supple. CHEST: No respiratory distress. HEART: Regular rate and rhythm ABDOMEN: Soft, nontender, nondistended EXTREMITIES: Normal range of motion. No edema. SKIN: Warm, dry, no rash. NEURO: No focal deficits. Nonverbal which is baseline PSYCH: Normal mood and affect. Course Vital Signs Vital signs: Vital Signs Temperature 97.4 F L 08/30/22 11:28 Pulse Rate 87 08/30/22 11:28 Respiratory Rate 16 08/30/22 11:28 Blood Pressure 120/63 08/30/22 11:28 Pulse Oximetry 98 08/30/22 11:28 Temperature 97.4 F L 08/30/22 11:28 Pulse Rate 97 08/30/22 16:17 Respiratory Rate 16 08/30/22 16:17 Blood Pressure 158/93 H 08/30/22 16:17 Pulse Oximetry 100 08/30/22 16:17 MDM - Male Genitourinary MDM Narrative Medical decision making narrative: Patient is a 77-year-old male presenting with increased urinary frequency. Vitals within normal limits. Exam remarkable for the above. No abdominal tenderness. Patient is overall well-appearing. Mucous membranes are moist. He appears well-hydrated.
[2022-08-30 14:57] LABS: Appearance Urine Turbid (Clear); Bacteria Urine 4+ /hpf; Bilirubin Urine Negative (Negative); Blood Urine 2+ (Negative); Color Urine Yellow (Yellow); Glucose Urine UA Negative (Negative); Ketones Urine Negative (Negative); Leukocyte Esterase Ur 3+ LEU/UL (Negative); Need Manual Microscopic Reviewed; Nitrate Urine Negative (Negative); Protein Urine 2+ mg/dL (Negative); Specific Grav Ur 1.017 (1.001-1.035); Squamous Epithelial Cell Urine None seen /hpf (Few); WBC Urine >100 /hpf; pH Urine 6.5 (5.0-9.0)
[2022-08-30 15:00] LABS: Add Urine Microscopic? YES
[2022-08-30] MEDS: CEPHALEXIN 500 MG CAPSULE PO (15:04)
== END 2022-08-30 16:28 | disposition home or self-care (01) ==
PROVIDERS: General Practice; Emergency Provider Emergency Medicine; PCP Emergency Medicine
DX: N39.0 Urinary tract infection, site not specified (principal); F41.9 Anxiety disorder, unspecified; M19.90 Unspecified osteoarthritis, unspecified site; K21.9 Gastro-esophageal reflux disease without esophagitis; G40.909 Epilepsy, unspecified, not intractable, without status epilepticus
CPT/HCPCS: 81001; 87077; 87086; 87186; 99283; A9270

== ENCOUNTER 2022-09-04 09:50 | Outpatient (CLI) | payer MEDICARE, SELFPAY ==
--- NOTE | ~2022-09-04 | XR_ITS ---
EXAMINATION: XR barium swallow modified DATE: 09/04/2022 10:44 INDICATION: Dysphagia, unspecified. TECHNIQUE: The patient was given barium-containing material of multiple consistencies to swallow by t rickey speech pathologist while I performed fluoroscopy. Fluoroscopy exposure time was 1.4 minutes. The n umber of fluoroscopy images saved to the PACS was 1. Dose-area product was 0.93 Gy-cm^2. FINDINGS: There is reduced laryngeal elevation, reduced laryngeal adduction, reduced tongue base retraction, va llecular residue, and laryngeal penetration. There is aspiration of thin liquids without cough. IMPRESSION: 1. Aspiration of thin liquids. 2. Please refer to the speech therapy report for recommendations. Reviewed, dictated and finalized at location A.
--- NOTE | 2022-09-04 16:41 | REHSTMBS ---
Assessment and note entered by Namita Chance, LOG HANDLER Modified Barium Swallow Evaluation Feeding Type Recommended Oral Food Consistency Minced and Moist, Level 5 Liquid Consistency Mildly Thick (2) ST Clinical Summary MODIFIED BARIUM SWALLOW STUDY This patient was seen for a Modified Barium Swallow study at the request of his physician in order to assess his risk for aspiration. Sister, Anne, who was present reported the patient has a history of Cerebral Palsy. She reports that she has to chop and cut up all of his foods in order to avoid choking episodes and that he will, himself, take large bites which she is afraid makes him choke. Patient was viewed in an upright position to the level of C5/C6. Patient exhibited trace penetration on two small sips of thin liquid contrast medium per spoon, but increased penetration with aspiration was noted on the uncontrolled thin liquid per cup. He did exhibit good ability to consume the pudding/semi-solid consistency and the small pieces of natalie cracker mixed with the semi-solid consistency. Patient tended to take large sips from the cup and was also observed placing head in partially extended position. A cough was eventually noted. The following impairments were observed: --Oral Stage: None, just lack of dentition which will affect diet recommendations. --Pharyngeal Stage: *Reduced base of tongue retraction allowing material to spillover the base of tongue into the valleculae and eventually the pyriform sinuses prior to eliciting a swallow. *Reduced laryngeal elevation contributing to reduced epiglottal inversion and penetration of thin liquids into the upper laryngeal vestibule prior to swallowing and also contributing to vallecular residue after the swallows. *Reduced laryngeal adduction as patient did not feel the aspiration or cough until later, which did clear some of the pooled material. Results indicate this patient would benefit from
== END 2022-09-04 09:51 | disposition home or self-care (01) ==
PROVIDERS: PCP Emergency Medicine; Visit Provider Nurse Practitioner Family
DX: R13.10 Dysphagia, unspecified (principal)
CPT/HCPCS: 92611

== ENCOUNTER 2022-09-11 12:33 | Outpatient (CLI) | payer MEDICARE, SELFPAY ==
[2022-09-11 20:28] LABS: Appearance Urine Turbid (Clear); Bacteria Urine 4+ /hpf; Bilirubin Urine Negative (Negative); Blood Urine 1+ (Negative); Color Urine Yellow (Yellow); Glucose Urine UA Negative (Negative); Ketones Urine Negative (Negative); Leukocyte Esterase Ur 3+ LEU/UL (Negative); Need Manual Microscopic Reviewed; Nitrate Urine Positive (Negative); Protein Urine 2+ mg/dL (Negative); Specific Grav Ur 1.018 (1.001-1.035); Squamous Epithelial Cell Urine None seen /hpf (Few); WBC Urine >100 /hpf; pH Urine 7.5 (5.0-9.0)
[2022-09-11 20:56] LABS: Add Urine Microscopic? YES
== END 2022-09-11 12:34 | disposition home or self-care (01) ==
PROVIDERS: PCP Emergency Medicine; Visit Provider Emergency Medicine
DX: Q65.9 Congenital deformity of hip, unspecified (principal); N30.00 Acute cystitis without hematuria
CPT/HCPCS: 81001; 87077; 87086; 87186

== ENCOUNTER → 2022-09-11 13:22 | Outpatient (CLI) | payer MEDICARE, SELFPAY ==
--- NOTE | ~2022-09-11 | XR_ITS ---
EXAMINATION: XR hip BI 2V w AP pelvis DATE: 09/11/2022 13:45 INDICATION: Congenital deformity of the bilateral hips, pain TECHNIQUE: AP view the pelvis and two views of each hip were obtained. COMPARISON: CT, 02/17/2022 FINDINGS: Limited bone alignment is normal. There is no fracture. There is mild osteoarthritis of the hips. Phleboliths are noted in the pelvis. There is a bone island in the right iliac wing. Calcified atherosclerosis is noted. IMPRESSION: 1. Mild osteoarthritis of the hips. Reviewed, dictated and finalized at location B.
== END ==
PROVIDERS: PCP Emergency Medicine; Visit Provider Emergency Medicine
DX: Q65.9 Congenital deformity of hip, unspecified (principal); M16.0 Bilateral primary osteoarthritis of hip
CPT/HCPCS: 73521

== ENCOUNTER 2022-11-19 10:22 | Outpatient (CLI) | payer MEDICARE, SELFPAY ==
[2022-11-19 15:11] LABS: Alanine Aminotransferase 22 U/L (6-50); Albumin Level 3.9 g/dL (3.5-5.1); Alkaline Phosphatase 101 U/L (38-126); Aspartate Amino Transferase 41 U/L (17-59); Bilirubin,Total 1.9 mg/dL (0.2-1.3)
== END 2022-11-19 10:23 | disposition home or self-care (01) ==
PROVIDERS: PCP Emergency Medicine; Visit Provider Emergency Medicine
DX: R17 Unspecified jaundice (principal)
CPT/HCPCS: 36415; 80076

== ENCOUNTER 2022-11-23 09:41 | Outpatient (CLI) | payer MEDICARE, SELFPAY ==
--- NOTE | ~2022-11-23 | US_ITS ---
US abdomen complete EXAMINATION: US Abdomen Complete INDICATION: Jaundice PROCEDURE: Realtime High Resolution abdomen ultrasound. COMPARISON: No prior studies for comparison FINDINGS: Gallbladder within normal limits. No gallstones, pericholecystic fluid, gallbladder wall t hickening or biliary dilatation. Common bile duct measures 6 mm. Liver echotexture within normal limits without focal mass. Pancreas within normal limits. Pancreati c tail is obscured by bowel gas. Spleen is unremarkeable. Renal echotexture is within normal limits bilaterally without hydronephrosis, contour deforming mass or renal stone. Right kidney measures 8.6 cm. Left kidney measures 11 cm. Visualized aspects of the aorta and IVC are within normal limits. Portal vein is patent. No sonograph ic Ambrocio's sign indicated by the technologist. IMPRESSION: 1: Normal abdominal ultrasound. Reviewed, dictated and finalized at location B.
== END 2022-11-23 09:42 ==
LOC: GOSHIMG 09:42
PROVIDERS: PCP Emergency Medicine; Visit Provider Emergency Medicine
DX: R17 Unspecified jaundice (principal)
CPT/HCPCS: 76700

== ENCOUNTER 2023-01-30 10:37 | Emergency (ER) | payer MEDICARE, SELFPAY ==
--- NOTE | ~2023-01-30 | CT_ITS ---
EXAMINATION: CT brain wo con DATE: 01/30/2023 13:05 INDICATION: Head injury bruising to the left arm post fall TECHNIQUE: Computed tomography (CT) of the head was performed without intravenous contrast. Sagittal and coronal reconstructions were performed. The mA was adjusted according to patient size. Iterative reconstruction technique was employed. The dose-length product was 681.00 mGy-cm. COMPARISON: head CT dated 06/22/2017 FINDINGS: No fracture. Acute intracranial hemorrhage, acute infarction or abnormal extra axial fluid collection . Small region of encephalomalacia in right frontal lobe likely sequela of chronic infarct. There is some focal ex vacuo dilation along the underlying anterior horn of the right lateral ventricle. Ventr icles are otherwise normal and symmetric. Symmetric prominence of the sulci consistent with mild age- appropriate diffuse cerebral volume loss. No mass/mass effect. Changes of bilateral intraocular lens replacement. The orbits, paranasal sinuses and mastoid air cells are normal. IMPRESSION: 1. No fracture or acute intracranial process. 2. 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 Reviewed, dictated and finalized at location A. ENT CARE DIRECTOR
--- NOTE | ~2023-01-30 | CT_ITS ---
EXAMINATION: CT facial & cervical spine wo DATE: 01/30/2023 13:05 INDICATION: Status post fall. Facial injury. TECHNIQUE: Computed tomography (CT) of the maxillofacial region and cervical spine was performed with out intravenous contrast. The dose-length product was 199.59 mGy-cm. Automated exposure control and i terative reconstruction technique were employed. COMPARISON: None FINDINGS: MAXILLOFACIAL CT: Study limited by motion artifact. No nasal fracture. Orbits are unremarkable. There is significant mo tion of the mandible limiting evaluation for nondisplaced fracture. Temporomandibular joints are symm etric. No acute zygomatic arch fracture. Lamina papyracea are intact bilaterally. Pterygoid plates wi thin normal limits. No significant soft tissue abnormality. There is a mucous retention cyst of the l eft maxillary sinus. CERVICAL SPINE CT: There is reversal of cervical lordosis. There are severe degenerative disc disease with endplate hype rtrophy at all cervical spine levels. There is degenerative anterolisthesis at C4-5. Odontoid process is unremarkable. Craniovertebral junction within normal limits. There is levoscoliosis. There is sev ere multilevel facet and uncinate hypertrophy. No acute fracture or traumatic malalignment. IMPRESSION: 1. No acute fracture. Limited evaluation of the facial bones due to motion. 2: Severe cervical spondylosis. Reviewed, dictated and finalized at location A. METALS ENGRAVER HAND
[2023-01-30 10:49] VITALS: BP 143/77; PULSE 74; RESP 18; TEMP 36.9; O2SAT 98
--- NOTE | 2023-01-30 12:20 | ED.FALL ---
HPI - Fall General Chief Complaint: Fall Stated Complaint: fall/facial injury Time Seen by Provider: 01/30/23 11:17 Source: family and RN notes reviewed Mode of arrival: wheelchair Limitations: physical limitation History of Present Illness HPI Narrative: This is 77 year old male with history of intellectual disability , nonverbal who presents with family for evaluation of fall. His caregiver reports patient was trying to lean over in his wheelchair to pick something up, and fell yesterday. She states she is unsure what he hit his head or face on. She noticed he has cut by left eye yesterday but the bleeding has stopped. She noticed left periorbital bruising so she brought him to ER for assessment. He is nonverbal . She states she has not noticed bruising or any other injury. He has not been acting as if he is in pain. Related Data Home Medications Medication Instructions Recorded Confirmed alendronate 70 mg-cholecalciferol 1 tablet PO WEEKLY 08/06/21 12/11/22 (vitamin D3) 5,600 unit tablet Allergies Allergy/AdvReac Type Severity Reaction Status Date / Time No Known Allergies Allergy Unknown Verified 01/30/23 10:53 Review of Systems Review of Systems: ROS unobtainable: Yes unobtainable due to medical condition PMFSH Past Medical History Medical History Anxiety Arthritis BPH (benign prostatic hyperplasia) Constipation GERD (gastroesophageal reflux disease) Incontinence No natural teeth Nonverbal Perforated ulcer required surgery Seizures Septic bursitis Sinusitis Urinary retention Surgical History Surgical History H/O oral surgery Family History Family History Father Acute myocardial infarction, Onset Age: 47 Mother Acute myocardial infarction, Onset Age: 73 Social History Social History Social History: He lives with his sister. Never smoked. He is mentally challenged. Code status full code Smoking status: Never smoker Alcohol intake: never Substance use: never Substance use type: does not use Lack of Transportation: No Lack of Food: Never True Current Housing: I Have Housing Concerned About Future Housing: No Difficulty Paying Gas/Electric Bills: No Difficulty Paying for Meds: No Currently Unemployed: No Education: Never Attended/Kindergarten Only Difficulty w/ Childcare or Family Care: No Living arrangements: other Additional living arrangements comments: lives with legal guardian Spiritual care concerns: No Exam Const: General: no acute distress and alert Other: nonverbal HENMT: Mouth: Yes lip normal and Yes moist mucous membranes Throat: posterior oropharynx normal and uvula midline Other: endentulous, left periorbital ecchymosis Eyes: Conjunctivae: conjunctivae normal Pupils: Equal, round and reactive pupils present EOM: EOMs intact bilaterally Other: left perorbital ecchymosis Chest: Chest palpation & inspection: normal inspection of the chest Resp: Effort & Inspection: normal respiratory effort Auscultation: clear to auscultation bilaterally Cardio: Rate: regular rate Rhythm: regular rhythm Heart sounds: no murmurs Skin: Wounds: wounds noted (left eye lid with superficial laceration, closed, no drainage, no bleeding) Psych: Mental Status: mental status grossly normal Attitude: cooperative Course Reevaluation(s) Reevaluation #1: I Discussed no acute injury and I Discussed discharge plan Date: 01/30/23 Time: 14:38 Vital Signs Vital signs: Vital Signs Temperature 98.5 F 01/30/23 10:49 Pulse Rate 74 01/30/23 10:49 Respiratory Rate 18 01/30/23 10:49 Blood Pressure 143/77 H 01/30/23 10:49 Pulse Oximetry 98 01/30/23 10:49 Oxygen Deliver
== END 2023-01-30 14:50 | disposition home or self-care (01) ==
PROVIDERS: Emergency Provider General Practice; PCP Emergency Medicine
DX: S00.12XA Contusion of left eyelid and periocular area, initial encounter (principal); N40.1 Benign prostatic hyperplasia with lower urinary tract symptoms; R33.8 Other retention of urine; K21.9 Gastro-esophageal reflux disease without esophagitis; M19.90 Unspecified osteoarthritis, unspecified site; F79 Unspecified intellectual disabilities; M47.812 Spondylosis without myelopathy or radiculopathy, cervical region; W05.0XXA Fall from non-moving wheelchair, initial encounter
CPT/HCPCS: 70450; 70486; 72125; 99284

== ENCOUNTER 2023-03-27 15:46 | Emergency (ER) | payer MEDICARE, SELFPAY ==
--- NOTE | ~2023-03-27 | XR_ITS ---
EXAM: XR elbow LT min 3V DATE: 03/27/2023 16:21 HISTORY: fall 2 days ago, swelling to posterior elbow, pain worse w/ . COMPARISON: None available. FINDINGS: Normal mineralization. No fracture or dislocation. No lytic or blastic lesion. Joint space s are maintained. No erosion or periosteal change. Marked soft tissue swelling over the olecranon. IMPRESSION: No acute osseous finding in the left elbow. Olecranon hematoma/bursitis. Reviewed, dictated and finalized at location K. WASH OPERATOR IMPRESSION: No acute osseous finding in the left elbow. Olecranon hematoma/burs itis.
[2023-03-27 15:46] VITALS: BP 140/71; PULSE 80; RESP 14; TEMP 37; O2SAT 95
--- NOTE | 2023-03-27 16:10 | ED.UPPEXIN ---
HPI - Extremity Injury (Upper) General Chief Complaint: Extremity Injury, Upper Stated Complaint: left elbow injury Time Seen by Provider: 03/27/23 15:56 History of Present Illness HPI narrative: 78 yo M with PMHx of CP, developmental delay, non-verbal, chronic pain, presents to ED with his sister due to a fall. Now sister noted that his left elbow is red and swollen. There's some abrasion on the skin of the left elbow as well. He has history of olecranon bursitis in the past. Pt is otherwise normal and does not complain of any pain. MD complaint: injury to: left and elbow Onset (ago): day(s) Other Extremity Injury: Left: elbow Other injuries: none Place: home Severity: moderate Related Data Home Medications Medication Instructions Recorded Confirmed alendronate 70 mg-cholecalciferol 1 tablet PO WEEKLY 08/06/21 03/27/23 (vitamin D3) 5,600 unit tablet Allergies Allergy/AdvReac Type Severity Reaction Status Date / Time No Known Allergies Allergy Unknown Verified 03/27/23 15:58 Review of Systems Review of Systems: All systems reviewed & are unremarkable except as noted in HPI and below PMFSH Past Medical History Medical History Anxiety Arthritis BPH (benign prostatic hyperplasia) Constipation GERD (gastroesophageal reflux disease) Incontinence No natural teeth Nonverbal Perforated ulcer required surgery Seizures Septic bursitis Sinusitis Urinary retention Surgical History Surgical History H/O oral surgery Family History Family History Father Acute myocardial infarction, Onset Age: 47 Mother Acute myocardial infarction, Onset Age: 73 Social History Social History Social History: He lives with his sister. Never smoked. He is mentally challenged. Code status full code Smoking status: Never smoker Alcohol intake: never Substance use: never Substance use type: does not use Lack of Transportation: No Lack of Food: Never True Current Housing: I Have Housing Concerned About Future Housing: No Difficulty Paying Gas/Electric Bills: No Difficulty Paying for Meds: No Currently Unemployed: No Education: Never Attended/Kindergarten Only Difficulty w/ Childcare or Family Care: No Living arrangements: other Additional living arrangements comments: lives with legal guardian Spiritual care concerns: No Exam Const: General: no acute distress and alert Nutritional Appearance: well nourished Other: At baseline mental status HENMT: Head: normal to inspection Chest: Chest palpation & inspection: normal inspection of the chest Resp: Effort & Inspection: normal respiratory effort Auscultation: clear to auscultation bilaterally Cardio: Rate: regular rate Rhythm: regular rhythm Skin: General skin exam: normal color Extrem: Other: Left posterior elbow swollen, erythematous. Superficial abrasion noted on skin. Course Vital Signs Vital signs: Vital Signs Temperature 98.6 F 03/27/23 15:46 Pulse Rate 80 03/27/23 15:46 Respiratory Rate 14 03/27/23 15:46 Blood Pressure 140/71 03/27/23 15:46 Pulse Oximetry 95 03/27/23 15:46 Oxygen Delivery Room Air 03/27/23 15:46 Temperature 98.6 F 03/27/23 15:46 Pulse Rate 80 03/27/23 15:46 Respiratory Rate 14 03/27/23 15:46 Blood Pressure 140/71 03/27/23 15:46 Pulse Oximetry 95 03/27/23 15:46 Oxygen Delivery Room Air 03/27/23 15:46 Procedures Abscess I/D upper extremity: Date of Incision: 03/27/23 Time of Incision: 17:00 Side (if applicable): left (Olecranon bursa) Sedation/analgesia: none Local Anesthetic: none Technique: needle aspiration Amount of fluid expressed (mL):
[2023-03-27 17:04] VITALS: BP 138/79; PULSE 77; RESP 12; TEMP 36.9; O2SAT 96
== END 2023-03-27 17:04 | disposition home or self-care (01) ==
PROVIDERS: Emergency Provider Emergency Medicine; PCP Emergency Medicine
DX: M70.22 Olecranon bursitis, left elbow (principal)
CPT/HCPCS: 10060; 20605; 73080; 99283

== ENCOUNTER 2023-06-21 08:40 | Outpatient (CLI) | payer MEDICARE, SELFPAY ==
[2023-06-21 09:25] LABS: Basophils Percent Auto 0.6 % (0.2-1.2); Eosinophils Percent Auto 0.2 % (0-4.4); Hematocrit 47.7 % (42.0-52.0); Hemoglobin 15.3 g/dL (14.0-18.0); Immature Granulocyte Absolute 0.03 K/mm3 (0.00-0.031); Immature Granulocyte Percent A 0.5 % (0-0.5); Lymphocytes Absolute Auto 1.07 K/mm3 (0.9-3.2); Lymphocytes Percent Auto 17.3 % (18.3-44.2); Mean Corpuscular HGB Conc 32.1 g/dl (32-36); Mean Corpuscular Hemoglobin 31.1 pg (26-34); Mean Platelet Volume 9.9 fl (7.4-10.4); Monocytes Absolute Auto 0.6 K/mm3 (0.1-0.6); Neutrophils Absolute Auto 4.5 K/mm3 (1.3-6.7); Neutrophils Percent Auto 72.4 % (45.5-73.1); Platelet Count Result 160 k/mm3 (150-375); Red Blood Count 4.92 M/mm3 (4.6-6.20); Red Cell Distribution Width 13.5 % (11.5-14.5); White Blood Count 6.2 K/mm3 (4.5-10.0)
[2023-06-21 09:30] LABS: Alanine Aminotransferase 20 U/L (6-50); Albumin Level 4.2 g/dL (3.5-5.1); Alkaline Phosphatase 115 U/L (38-126); Anion Gap 3 mmol/L (4-12); Aspartate Amino Transferase 30 U/L (17-59); Bilirubin,Total 2.7 mg/dL (0.2-1.3); Blood Urea Nitrogen 20 mg/dL (9-20); Calcium 9.8 mg/dL (8.4-10.2); Carbon Dioxide 31 mmol/L (22-30); Chloride 108 mmol/L (98-107); Cholesterol 177 mg/dL (0-200); Estimated Glomerular Filt Rate > 60; Glucose 95 mg/dL (65-110); HDL Direct 55 mg/dL; Potassium 3.8 mmol/L (3.4-5.0); Sodium 142 mmol/L (137-145); Triglycerides 50 mg/dL (<150)
[2023-06-21 09:40] LABS: LDL Cholesterol Direct 118 mg/dL
[2023-06-21 10:16] LABS: Prostate Specific Antigen 0.5 ng/mL (< OR = 4.0)
[2023-06-21 10:18] LABS: Hemoglobin A1C 4.8 % (<5.7)
== END 2023-06-21 08:41 | disposition home or self-care (01) ==
LOC: ANHLAB 08:42
PROVIDERS: PCP Emergency Medicine; Visit Provider Emergency Medicine
DX: R63.4 Abnormal weight loss (principal); E78.00 Pure hypercholesterolemia, unspecified; R73.02 Impaired glucose tolerance (oral); N40.0 Benign prostatic hyperplasia without lower urinary tract symptoms; Z12.5 Encounter for screening for malignant neoplasm of prostate
CPT/HCPCS: 36415; 80053; 80061; 83036; 84153; 85025; G0103

== ENCOUNTER 2023-08-08 09:35 | Emergency (ER) | payer MEDICARE, SELFPAY ==
--- NOTE | ~2023-08-08 | XR_ITS ---
[[id number] ] INDICATION: Left rib pain after fall TECHNIQUE: Frontal projection of the upper left ribs, frontal projection of the lower left ribs, obli que projection of all the left ribs, frontal inspiratory chest x-ray for interpretation. FINDINGS: There are no displaced rib fractures identified. There are no soft tissue abnormality see n. The lungs are clear. 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 There is a nond isplaced left eighth rib fracture. No pneumothorax. There is bibasilar atelectasis. IMPRESSION: 1: Nondisplaced acute left eighth rib fracture. Healed left seventh rib fracture.. Reviewed, dictated and finalized at location B. IMPRESSION: 1: Nondisplaced acute left eighth rib fracture. Healed left seventh rib fractur eEmily.
[2023-08-08 09:38] VITALS: BP 141/75; PULSE 81; RESP 18; TEMP 36.4; O2SAT 98
--- NOTE | 2023-08-08 09:55 | PC.NURSE ---
Pts visitor states pt fell in the bathroom, possibly on Wednesday.
--- NOTE | 2023-08-08 10:36 | ED.GENADULT ---
HPI - General Adult General Chief complaint: Fall Stated complaint: right rib pain Time Seen by Provider: 08/08/23 09:57 History of Present Illness HPI narrative: 78-year-old male with severe cerebral palsy who is nonverbal presenting with his family for rib pain. Patient's wild animal caretaker said that she was transferring him from the toilet when he slid off the toilet and hit his ribs on the left side. Since then she believes he has been having pain on left side whenever she touches him. Otherwise he is acting normal with no changes in behavior. Related Data Home Medications Medication Instructions Recorded Confirmed alendronate 70 mg-cholecalciferol 1 tablet PO WEEKLY 08/06/21 04/16/23 (vitamin D3) 5,600 unit tablet Allergies Allergy/AdvReac Type Severity Reaction Status Date / Time doxycycline AdvReac Mild Rash Uncoded 08/08/23 09:43 [facility] Past Medical History Medical History Anxiety Arthritis BPH (benign prostatic hyperplasia) Constipation GERD (gastroesophageal reflux disease) Incontinence No natural teeth Nonverbal Perforated ulcer required surgery Seizures Septic bursitis Sinusitis Urinary retention Surgical History Surgical History H/O oral surgery Family History Family History Father Acute myocardial infarction, Onset Age: 47 Mother Acute myocardial infarction, Onset Age: 73 Social History Social History Social History: He lives with his sister. Never smoked. He is mentally challenged. Code status full code Smoking status: Never smoker Alcohol intake: never Substance use: never Substance use type: does not use Lack of Transportation: No Lack of Food: Never True Current Housing: I Have Housing Concerned About Future Housing: No Difficulty Paying Gas/Electric Bills: No Difficulty Paying for Meds: No Currently Unemployed: No Education: Never Attended/Kindergarten Only Difficulty w/ Childcare or Family Care: No Living arrangements: other Additional living arrangements comments: lives with legal guardian Spiritual care concerns: No Exam Narrative: APPEARANCE: severe cerebral palsy with contractures, nonverbal Head: atraumatic. EYES: EOMI, NOSE: Atraumatic NECK: Trachea midline RESPIRATORY: No increased rate of breathing, CTAB CARDIOVASCULAR: RRR, No peripheral edema ABDOMINAL: Non-distended soft nontender MUSCULOSKELETAl: No tenderness to palpation with the left ribcage NEURO: Alert. Moving 4/4 extremities SKIN:: Warm, dry. Normal color PSYCHIATRIC: Normal affect Course Vital Signs Vital signs: Vital Signs Temperature 97.6 F 08/08/23 09:38 Pulse Rate 81 08/08/23 09:38 Respiratory Rate 18 08/08/23 09:38 Blood Pressure 141/75 H 08/08/23 09:38 Pulse Oximetry 98 08/08/23 09:38 Oxygen Delivery Room Air 08/08/23 09:38 Temperature 97.6 F 08/08/23 09:38 Pulse Rate 81 08/08/23 09:38 Respiratory Rate 18 08/08/23 09:38 Blood Pressure 141/75 H 08/08/23 09:38 Pulse Oximetry 98 08/08/23 09:38 Oxygen Delivery Room Air 08/08/23 09:38 Medical Decision Making MDM Narrative Medical decision making narrative: -Course: 78-year-old male with cerebral palsy presenting left rib pain. X-ray showed a isolated left rib fracture. no pneumothorax hemothorax. Patient pain has been treated . family was educated the incentive spirometer. Patient has been discharged with pain medication and return precautions for pneumonia. -DDX includes but is not limited to: Rib fracture, rib contusion pneumothorax -Co-morbidities complicating care: severe severe palsy -Social determinants of health: disabled, all ADLs performed by caretakers -Hx from independent Sources: marylin
[2023-08-08] MEDS: ACETAMINOPHEN 500 MG TABLET 1000 MG PO (11:10)
[2023-08-08] MEDS: IBUPROFEN 400 MG TABLET 800 MG PO (11:10)
[2023-08-08] MEDS: LIDOCAINE 5% PATCH 1 PATCH TRANSDERM (11:11)
== END 2023-08-08 11:13 | disposition home or self-care (01) ==
PROVIDERS: Emergency Provider Emergency Medicine; PCP Emergency Medicine
DX: S22.32XA Fracture of one rib, left side, initial encounter for closed fracture (principal); G80.9 Cerebral palsy, unspecified; F41.9 Anxiety disorder, unspecified; M19.90 Unspecified osteoarthritis, unspecified site; K21.9 Gastro-esophageal reflux disease without esophagitis; G40.909 Epilepsy, unspecified, not intractable, without status epilepticus; W18.11XA Fall from or off toilet without subsequent striking against object, initial encounter
CPT/HCPCS: 71101; 99283; A9270

== ENCOUNTER 2023-08-21 01:55 | Emergency (ER) | payer MEDICARE, SELFPAY ==
--- NOTE | ~2023-08-21 | XR_ITS ---
XR chest 1V portable DATE: 08/21/2023 02:25 INDICATION: Weakness TECHNIQUE: Portable upright AP chest on 08/21/2023 at 0220 hours COMPARISON: 02/17/2022 CT chest abdomen pelvis 01/03/2018 2 view chest FINDINGS: Increased density overlying the left hemithorax may be due to positioning, skin fold. Consi gustavo PA and lateral projections of possible, CT thorax if necessary. Mild infiltrate or atelectasis at the lung bases. Chronic volume loss of the left lung compared to the right. Heart size appears normal. No pleural effusion or pulmonary vascular congestion or pneumothorax. Dextroscoliosis of the thoracic spine. Osteopenia. IMPRESSION: Increased density projecting over the left chest, likely due to positioning, overlapping soft tissues; PA and lateral upright views are recommended, CT thorax if necessary Bilateral lower lung infiltrate and/or atelectasis Osteopenia Thoracic dextroscoliosis Reviewed, dictated and finalized at location A. IMPRESSION: Increased density projecting over the left chest, likely due to pos itioning, overlapping soft tissues; PA and lateral upright views are recommende d, CT thorax if necessary Bilateral lower lung infiltrate and/or atelectasis Osteopenia Thoracic dextroscoliosis
--- NOTE | ~2023-08-21 | CT_ITS ---
EXAMINATION: CTA chest PE protocol DATE: 08/21/2023 04:42 INDICATION: Shortness of breath. Recent rib fracture. TECHNIQUE: Computed tomography angiography (CTA) of the chest was performed with 100 mL Omnipaque-350 intravenous contrast timed to evaluate the pulmonary arteries. Coronal maximum intensity projection 3D-reconstructions were created by the technologist. Automated exposure control and iterative reconst ruction technique were employed. Exam dose: 226.81 mGy-cm total exam DLP. COMPARISON: None. FINDINGS: Examination is limited due to motion. There is diagnostic contrast opacification of the pul monary arteries. No apparent pulmonary embolism is identified. Normal heart size. No pericardial or pleural effusion. No thoracic aortic aneurysm or dissection is evident. No hilar or mediastinal mass lesion or lymphadenopathy is detected. The increased density overlying the left chest on the 08/21/2023 0220 hours portable chest radiograph is due to the superimposed left shoulder soft tissues. Mild bilateral dependent predominantly lower lobe atelectasis. No adrenal mass lesion is detected. Severe degenerative disc disease in the lower cervical and upper thoracic spine. Dextroscoliosis and degenerative spurring of the thoracic spine. IMPRESSION: Examination limited by patient motion. No obvious pulmonary embolism Reviewed, dictated and finalized at Location A. Reviewed, dictated and finalized at location A. IMPRESSION: Examination limited by patient motion. No obvious pulmonary emboli sm
[2023-08-21 01:55] VITALS: BP 159/88; PULSE 84; RESP 14; TEMP 37.1; O2SAT 96
[2023-08-21 03:10] LABS: Basophils Percent Auto 0.4 % (0.2-1.2); Eosinophils Percent Auto 0.4 % (0-4.4); Hematocrit 39.6 % (42.0-52.0); Hemoglobin 13.3 g/dL (14.0-18.0); Immature Granulocyte Absolute 0.02 K/mm3 (0.00-0.031); Immature Granulocyte Percent A 0.3 % (0-0.5); Lymphocytes Absolute Auto 1.01 K/mm3 (0.9-3.2); Lymphocytes Percent Auto 14.3 % (18.3-44.2); Mean Corpuscular HGB Conc 33.6 g/dl (32-36); Mean Corpuscular Hemoglobin 31.7 pg (26-34); Mean Corpuscular Volume 94.3 fl (80-100); Mean Platelet Volume 9.6 fl (7.4-10.4); Monocytes Absolute Auto 0.8 K/mm3 (0.1-0.6); Monocytes Percent Auto 10.8 % (2.6-8.5); Neutrophils Absolute Auto 5.2 K/mm3 (1.3-6.7); Neutrophils Percent Auto 73.8 % (45.5-73.1); Platelet Count Result 150 k/mm3 (150-375)
[2023-08-21 03:15] VITALS: BP 157/85; PULSE 72; RESP 14; O2SAT 97
[2023-08-21 03:23] LABS: Lactic Acid Reflex 0.8 mmol/L (0.7-2.0)
[2023-08-21 03:24] LABS: Alanine Aminotransferase 28 U/L (6-50); Alkaline Phosphatase 150 U/L (38-126); Anion Gap 4 mmol/L (4-12); Aspartate Amino Transferase 37 U/L (17-59); Bilirubin,Total 2.3 mg/dL (0.2-1.3); Blood Urea Nitrogen 31 mg/dL (9-20); Calcium 9.7 mg/dL (8.4-10.2); Carbon Dioxide 32 mmol/L (22-30); Chloride 109 mmol/L (98-107); Estimated CRCL calculation 35 ml/min; Estimated Glomerular Filt Rate 54; Glucose 107 mg/dL (65-110); Potassium 3.7 mmol/L (3.4-5.0); Sodium 145 mmol/L (137-145)
[2023-08-21 03:46] LABS: Influenza A QL RT-PCR Negative (Negative); Influenza B QL RT-PCR Negative (Negative); RSV RNA, RT-PCR Negative (Negative); SARS-CoV-2 RNA PCR Negative (Negative)
[2023-08-21 03:46] LABS: Procalcitonin 0.1 ng/mL
[2023-08-21 04:40] VITALS: BP 155/84; PULSE 80; RESP 16; O2SAT 98
--- NOTE | 2023-08-21 04:47 | ED.GENADULT ---
HPI - General Adult General Chief complaint: Fall Stated complaint: Fall from bed Time Seen by Provider: 08/21/23 01:58 History of Present Illness HPI narrative: Patient is a 78-year-old gentleman who presents emergency department chief complaint of recent fall out of bed. Patient was seen about a week ago after he had a ground level fall from a bed had multiple left-sided rib fractures. Patient has history of prior disability and the family was concerned because he has been more lethargic today and also reports that he has been and a little bit more discomfort Related Data Home Medications Medication Instructions Recorded Confirmed alendronate 70 mg-cholecalciferol 1 tablet PO WEEKLY 08/06/21 04/16/23 (vitamin D3) 5,600 unit tablet Allergies Allergy/AdvReac Type Severity Reaction Status Date / Time doxycycline AdvReac Mild Rash Uncoded 08/08/23 09:43 Review of Systems Review of Systems: A 10 system review of systems was completed on the patient and is negative except for what is stated in the HPI. Nursing and ancillary documentation was reviewed. [facility] Past Medical History Medical History Anxiety Arthritis BPH (benign prostatic hyperplasia) Constipation GERD (gastroesophageal reflux disease) Incontinence No natural teeth Nonverbal Perforated ulcer required surgery Seizures Septic bursitis Sinusitis Urinary retention Surgical History Surgical History H/O oral surgery Family History Family History Father Acute myocardial infarction, Onset Age: 47 Mother Acute myocardial infarction, Onset Age: 73 Social History Social History Social History: He lives with his sister. Never smoked. He is mentally challenged. Code status full code Smoking status: Never smoker Alcohol intake: never Substance use: never Substance use type: does not use Lack of Transportation: No Lack of Food: Never True Current Housing: I Have Housing Concerned About Future Housing: No Difficulty Paying Gas/Electric Bills: No Difficulty Paying for Meds: No Currently Unemployed: No Education: Never Attended/Kindergarten Only Difficulty w/ Childcare or Family Care: No Living arrangements: other Additional living arrangements comments: lives with legal guardian Spiritual care concerns: No Exam Narrative: GENERAL: Severe cerebral palsy with contractures nonverbal. HEAD: atraumatic. EYES: PERRLA and EOMI. ENT: Nares clear, no rhinorrhea or epistaxis. Mucous membranes moist. NECK: Supple. CHEST: Clear to auscultation. No respiratory distress. HEART: Regular rate and rhythm. No murmur heard. Normal peripheral pulses. ABDOMEN: Soft, nontender, nondistended, normal active bowel sounds. EXTREMITIES: Normal range of motion. No edema. SKIN: Warm, dry, no rash. NEURO: No focal deficits. Alert and oriented to patient's baseline. PSYCH: Normal mood and affect. Course Vital Signs Vital signs: Vital Signs Temperature 37.1 C 08/21/23 01:55 Pulse Rate 84 08/21/23 01:55 Respiratory Rate 14 08/21/23 01:55 Blood Pressure 159/88 H 08/21/23 01:55 Pulse Oximetry 96 08/21/23 01:55 Oxygen Delivery Room Air 08/21/23 01:55 Temperature 37.1 C 08/21/23 01:55 Pulse Rate 72 08/21/23 03:15 Respiratory Rate 14 08/21/23 03:15 Blood Pressure 157/85 H 08/21/23 03:15 Pulse Oximetry 97 08/21/23 03:15 Oxygen Delivery Room Air 08/21/23 01:55 Medical Decision Making [facility] Narrative Medical decision making narrative: Differential diagnosis includes pneumonia, pneumothorax, multiple rib fractures Laboratory studies were obtained on the patient showed a white count of 7.0 electrolyt
[2023-08-21 06:00] VITALS: BP 148/92; PULSE 84; RESP 15; O2SAT 99
== END 2023-08-21 06:17 | disposition home or self-care (01) ==
PROVIDERS: Emergency Provider Emergency Medicine; PCP Emergency Medicine
DX: S22.41XA Multiple fractures of ribs, right side, initial encounter for closed fracture (principal); M19.90 Unspecified osteoarthritis, unspecified site; K21.9 Gastro-esophageal reflux disease without esophagitis; N40.1 Benign prostatic hyperplasia with lower urinary tract symptoms; R33.8 Other retention of urine; Z20.822 Contact with and (suspected) exposure to COVID-19; M85.88 Other specified disorders of bone density and structure, other site; G80.9 Cerebral palsy, unspecified; W06.XXXA Fall from bed, initial encounter
CPT/HCPCS: 36415; 71045; 71275; 80053; 83605; 84145; 85025; 87637; 99284; Q9967

== ENCOUNTER 2023-09-23 11:25 | Outpatient (CLI) | payer MEDICARE, SELFPAY ==
[2023-09-23 12:14] LABS: Alanine Aminotransferase 21 U/L (6-50); Albumin Level 3.7 g/dL (3.5-5.1); Alkaline Phosphatase 103 U/L (38-126); Aspartate Amino Transferase 32 U/L (17-59); Bilirubin,Total 2.2 mg/dL (0.2-1.3); Lipase 47 U/L (23-300)
[2023-10-02 13:47] LABS: Alkaline Phosphatase 95 U/L (35-144)
== END 2023-09-23 11:26 | disposition home or self-care (01) ==
LOC: ANHLAB 11:28
PROVIDERS: PCP Emergency Medicine; Visit Provider Nurse Practitioner Family
DX: R74.8 Abnormal levels of other serum enzymes (principal); R17 Unspecified jaundice
CPT/HCPCS: 36415; 80076; 83690; 84075; 84080

== ENCOUNTER 2023-10-11 03:38 | Day surgery (SDC) | payer MEDICARE, SELFPAY ==
[2023-10-05 11:11] VITALS: BMI 20.1
[2023-10-11 10:34] VITALS: BP 132/70; PULSE 73; RESP 18; TEMP 36.1; O2SAT 96
[2023-10-11] MEDS: LACTATED RINGERS 1,000 ML 150 ML IV CONT (10:49)
--- NOTE | 2023-10-11 10:59 | WPDANESEPPF ---
Anes - Initial Pre Proc Eval Procedure: Operation Date: 10/11/23 11:30 Proposed Procedures p Esophagogastroduodenoscopy - Niko Kowalski MD Date/Time: 10/11/23 10:59 Surgeon: Niko Kowalski MD Pre Op Diagnosis: Dysphagia Patient Data Age: 78 Gender: M Height: 1.73 m Weight: 59 kg Last Vital Signs Temp 97 F L 10/11/23 10:34 Pulse 73 10/11/23 10:34 Resp 18 10/11/23 10:34 BP 132/70 10/11/23 10:34 Pulse Ox 96 10/11/23 10:34 O2 Del Method Room Air 10/11/23 10:34 Allergies Allergy/AdvReac Type Severity Reaction Status Date / Time doxycycline AdvReac Mild Rash Uncoded 10/11/23 10:32 Home Medications Medication Instructions Recorded Confirmed Type maltodextrin-xanthan gum oral 1 ea PO PER PKG DIR #125 grams 09/07/22 10/05/23 Rx powder (Thicken Up Clear oral powder) tamsulosin 0.4 mg capsule 0.8 mg PO DAILY #180 caps 02/05/23 10/05/23 Rx omeprazole 20 mg capsule,delayed 20 mg PO DAILY #90 caps 05/20/23 10/05/23 Rx release finasteride 5 mg tablet See Rx Instructions .Route 07/08/23 10/05/23 Rx .COMPLEX #90 tabs acetaminophen 500 mg tablet 1,000 mg PO TID PRN evelin 7 days #42 08/08/23 10/05/23 Rx tabs lidocaine 5 % topical patch 1 patch topical DAILY #15 ea 08/08/23 10/05/23 Rx tramadol 50 mg tablet 50 mg PO BID PRN pain #60 tabs 09/24/23 10/11/23 Rx cholecalciferol (vitamin D3) 25 25 mcg PO DAILY 10/05/23 10/05/23 History mcg (1,000 unit) capsule (Vitamin D3) Patient hx anesthesia problems: none Family hx anesthesia problems: none Results Review: All pre-operative results and documents have been reviewed as part of the pre-operative evaluation. [facility] Past Medical History Medical History Anxiety Arthritis BPH (benign prostatic hyperplasia) Constipation GERD (gastroesophageal reflux disease) Incontinence No natural teeth Nonverbal Perforated ulcer required surgery Seizures Septic bursitis Sinusitis Urinary retention Surgical History Surgical History H/O oral surgery Family History Family History Father Acute myocardial infarction, Onset Age: 47 Mother Acute myocardial infarction, Onset Age: 73 Social History Social History Social History: He lives with his sister. Never smoked. He is mentally challenged. Code status full code Smoking status: Never smoker Alcohol intake: never Substance use: never Substance use type: does not use Lack of Transportation: No Lack of Food: Never True Current Housing: I Have Housing Concerned About Future Housing: No Difficulty Paying Gas/Electric Bills: No Difficulty Paying for Meds: No Currently Unemployed: No Education: Never Attended/Kindergarten Only Difficulty w/ Childcare or Family Care: No Living arrangements: with family Additional living arrangements comments: lives with legal guardian Spiritual care concerns: No Anes - Eval Final PreProcedure Day of Procedure 10/11/23 10:59 Patient weight: normal Heart: regular rate and rhythm Lungs: clear to auscultation Airway: Mallampati scale class III Neurological: other (history of CP; non verbal) Last oral intake: >/= 8 hours ASA classification: III Emergent: no Anesthetic plan: proceed Anesthesia type and monitoring: general GIVS and standard monitoring Results Review: All pre-operative results and documents have been reviewed as part of the pre-operative evaluation. Informed Consent: The patient's anesthetic plan and its attendant risks and benefits were discussed with the patient/family/POA. Questions were solicited and answers provided to the satisfaction of the patient/family/POA.
--- NOTE | 2023-10-11 11:14 | WPDHPUPDATE1 ---
History and Physical Update Update Date/Time: 10/11/23 11:14 History and Physical has been reviewed, including an updated exam of the patient. There are NO changes in the patient's condition. Risks, benefits, and alternatives have been discussed and questions answered. Patient agrees to proceed with procedure.
[2023-10-11 11:27] VITALS: BP 104/63; PULSE 66; RESP 18; O2SAT 99
[2023-10-11 11:37] VITALS: BP 119/70; PULSE 71; RESP 18; O2SAT 100
[2023-10-11 11:47] VITALS: BP 140/82; PULSE 67; RESP 18; O2SAT 100
== END 2023-10-11 11:55 | disposition home or self-care (01) ==
PROVIDERS: PCP Emergency Medicine; Referring Provider Nurse Practitioner Family; Visit Provider Internal Medicine Gastroenterology
PROC: 0DJ08ZZ Inspection of Upper Intestinal Tract, Via Natural or Artificial Opening Endoscopic (ICD-10-PCS; CPT 43235; principal; 2023-10-11 11:30)
DX: R13.11 Dysphagia, oral phase (principal); F41.9 Anxiety disorder, unspecified; N40.0 Benign prostatic hyperplasia without lower urinary tract symptoms; K21.9 Gastro-esophageal reflux disease without esophagitis; R32 Unspecified urinary incontinence; Z79.891 Long term (current) use of opiate analgesic; Z98.890 Other specified postprocedural states; Z82.49 Family history of ischemic heart disease and other diseases of the circulatory system
CPT/HCPCS: 43235; J2704; J7120

== ENCOUNTER 2023-10-18 11:34 | Observation (INO) | payer MEDICARE, SELFPAY ==
[2023-10-18] VITALS (14 sets, daily range): BP systolic 118–155; BP diastolic 63–82; PULSE 69–85; RESP 13–20; TEMP 36.8–37; O2SAT 97–99
--- NOTE | ~2023-10-18 | CT_ITS ---
EXAMINATION: CT brain wo con DATE: 10/19/2023 11:44 INDICATION: Seizure. TECHNIQUE: Computed tomography (CT) of the head was performed without intravenous contrast. The mA wa s adjusted according to patient size. Iterative reconstruction technique was employed. The dose-lengt h product was 1210.67 mGy-cm. 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 There is no intracranial hemorrhage, acute i nfarction, or abnormal intracranial mass lesion. The ventricles are normal in size. There is ex vacuo dilatation of right lateral ventricle. There is mild mucosal thickening in the paranasal sinuses. Th e mastoid air cells are normal. There are likely changes of ocular lens replacement surgeries. IMPRESSION: 1. 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 Reviewed, dictated and finalized at location A.
--- NOTE | ~2023-10-18 | XR_ITS ---
XR chest 1V portable Ordering provider: Zoë Moss MD History: 78 years Male with . increased fatigue; eval for obvious PNA . Comparison: August 21, 2023 FINDINGS: MEDIASTINUM: The cardiac silhouette is not enlarged. LUNGS: No infiltrates, effusions or pneumothorax. Emphysematous changes of the lungs. Prominent markings in the lower lobes. OTHER: No free air under the diaphragm. Dextroscoliosis with degenerative changes. IMPRESSION: Prominent markings in the lower lobes which may indicate early pneumonia. Follow-up advised. Reviewed, dictated and finalized at location A. IMPRESSION: Prominent markings in the lower lobes which may indicate early pneumonia. Follo w-up advised.
--- NOTE | 2023-10-18 13:13 | ED.MALEGU ---
HPI - Male Genitourinary General Chief complaint: Urogenital-Male Stated complaint: UTI Time Seen by Provider: 10/18/23 12:53 Source: patient and family (Sister) Mode of arrival: ambulatory Limitations: other (Nonverbal) History of Present Illness HPI Narrative: Patient presents with his sister who provides history given he is nonverbal due to mental disability. She is concerned he has a urinary tract infection as he has been intermittently incontinent of urine over the last 2 weeks. This has happened before when he had a urinary tract infection. She also noted that he had some thick drainage at/around his penis. He sees a urologist for prostate issues. He has also been seeing gastroenterology for frequent episodes of choking and is currently thickened liquid diet. Had been followed by Dr. Bledsoe Wednesday is to then referred him to ENT. In generally he has had decreased p.o. intake in lost weight and has been more fatigued than normal. He lives with his sister he notes that he has been less ambulatory lately has had fewer bowel movements. She notes that he will at times make his needs known by pointing or groaning/grimacing. Related Data Home Medications Medication Instructions Recorded Confirmed cholecalciferol (vitamin D3) 25 25 mcg PO DAILY 10/05/23 10/18/23 mcg (1,000 unit) capsule (Vitamin D3) acetaminophen 500 mg tablet 1,000 mg PO TID PRN Pain 10/18/23 10/18/23 Allergies Allergy/AdvReac Type Severity Reaction Status Date / Time doxycycline Allergy Mild Rash Verified 10/18/23 14:24 [facility] Past Medical History Medical History (Updated 10/19/23 @ 05:35 by Zoë Moss MD) Anxiety Arthritis Benign prostatic hyperplasia Cerebral palsy Constipation Gastroesophageal reflux disease Intellectual disability Perforated ulcer required surgery Seizures None since childhood. Septic bursitis Surgical History Surgical History (Updated 10/18/23 @ 15:18 by Santa Ledesma PA-C) History of bursectomy (07/2015) Excision electrode on bursa, left elbow for septic bursitis. History of cataract extraction History of laparotomy For perforated ulcer. Family History Family History Father Acute myocardial infarction, Onset Age: 47 Mother Acute myocardial infarction, Onset Age: 73 Sibling Heart disease Lung disease Social History Social History (Updated 10/18/23 @ 22:20 by Santa Ledesma PA-C) Social History: Legal guardian: Namita Armstrong and Leydi Tanner, sisters. Code status: Do not resuscitate. Smoking status: Never smoker Alcohol intake: never Substance use: never Substance use type: does not use Lack of Transportation: No Lack of Food: Never True Current Housing: I Have Housing Concerned About Future Housing: No Difficulty Paying Gas/Electric Bills: No Difficulty Paying for Meds: No Currently Unemployed: No Education: Never Attended/Kindergarten Only Difficulty w/ Childcare or Family Care: No Living arrangements: with family Additional living arrangements comments: Lives with sister who is his legal guardian. Wheelchair-bound now but can stand and pivot. Spiritual care concerns: No Exam Narrative: GENERAL: Well-appearing, well-nourished, and in no acute distress. HEAD: Normocephalic, atraumatic. EYES: Non injected, non icteric ENT: Nares clear, no rhinorrhea or epistaxis. Edentulous NECK: Supple. CHEST: Non verbal. No respiratory distress. HEART: Regular rate and rhythm. ABDOMEN: Soft, nondistended. Mild tenderness to palpation at the suprapubic area without rigidity or guarding. Not peritoneal : Questionable CVA tenderness bilaterally. Patient does seem to grimace more with percussion over kidneys. EXTREMITIES: Normal range of motion. No lower extremity edema. SKIN: Warm, dry, no rash. NEURO: No focal deficits. Alert. Contractures. P
[2023-10-18 13:48] LABS: Add Urine Microscopic? YES; Appearance Urine Turbid (Clear); Bacteria Urine 4+ /hpf; Bilirubin Urine Negative (Negative); Blood Urine 1+ (Negative); Color Urine Yellow (Yellow); Glucose Urine UA Negative (Negative); Ketones Urine Negative (Negative); Leukocyte Esterase Ur 3+ LEU/UL (Negative); Need Manual Microscopic Reviewed; Nitrate Urine Positive (Negative); Non Pathogenic Casts 0-2; Protein Urine 2+ mg/dL (Negative); Specific Grav Ur 1.019 (1.001-1.035); Squamous Epithelial Cell Urine None Seen /hpf (Few); WBC Urine >100 /hpf (0-3)
[2023-10-18 14:11] LABS: Basophils Percent Auto 0.6 % (0.2-1.2); Eosinophils Percent Auto 0.4 % (0-4.4); Hematocrit 41.1 % (42.0-52.0); Hemoglobin 13.6 g/dL (14.0-18.0); Immature Granulocyte Absolute 0.03 K/mm3 (0.00-0.031); Immature Granulocyte Percent A 0.6 % (0-0.5); Lymphocytes Percent Auto 16.8 % (18.3-44.2); Mean Corpuscular HGB Conc 33.1 g/dl (32-36); Mean Corpuscular Hemoglobin 32.7 pg (26-34); Mean Corpuscular Volume 98.8 fl (80-100); Mean Platelet Volume 9.5 fl (7.4-10.4); Monocytes Absolute Auto 0.5 K/mm3 (0.1-0.6); Monocytes Percent Auto 8.4 % (2.6-8.5); Neutrophils Absolute Auto 3.9 K/mm3 (1.3-6.7); Neutrophils Percent Auto 73.2 % (45.5-73.1); Platelet Count Result 195 k/mm3 (150-375); Red Blood Count 4.16 M/mm3 (4.6-6.20); Red Cell Distribution Width 13.4 % (11.5-14.5); White Blood Count 5.4 K/mm3 (4.5-10.0)
[2023-10-18 14:29] LABS: Alanine Aminotransferase 27 U/L (6-50); Albumin Level 3.6 g/dL (3.5-5.1); Alkaline Phosphatase 102 U/L (38-126); Anion Gap 5 mmol/L (4-12); Aspartate Amino Transferase 35 U/L (17-59); Bilirubin,Total 2.4 mg/dL (0.2-1.3); Blood Urea Nitrogen 22 mg/dL (9-20); Calcium 10.8 mg/dL (8.4-10.2); Carbon Dioxide 34 mmol/L (22-30); Chloride 103 mmol/L (98-107); Estimated CRCL calculation 54 ml/min; Estimated Glomerular Filt Rate > 60; Glucose 104 mg/dL (65-110); Potassium 4.4 mmol/L (3.4-5.0); Sodium 142 mmol/L (137-145)
--- NOTE | 2023-10-18 15:10 | PM.IMHP ---
H&P: HPI History of Present Illness Date/Time: 10/18/23 15:10 Chief Complaint: Urine incontinence. Narrative: This is a 78-year-old male with history of urinary tract infection, benign prostatic hyperplasia, gastroesophageal reflux disease, peptic ulcers, cerebral palsy, and intellectual disability who presented to the emergency department via private vehicle accompanied by his sister for evaluation of urinary incontinence. The patient is nonverbal and his sister provides the following history. At times the patient has episodes of incontinence however it has been excessive over the past 2 weeks and yesterday she noticed that the urine seemed to have puss in it. He otherwise seems to have been acting okay however sister does admit that he has never really seemed to be uncomfortable nor does he complain much. His appetite has been good however he has been having issues with dysphagia and had a recent EGD with Dr. Kowalski which was reportedly unremarkable. He was referred to ENT and speech therapy who recommended nectar and possibly honey thickened liquids which he seems to be tolerating. Sister has not witnessed any episodes concerning for aspiration. She does not think the patient has been febrile. He has not been coughing. No reports of diarrhea. In the ED: He was afebrile on arrival with stable vital signs. Labs [place] significant for a WBC count of 5.4, hemoglobin 13.6, BUN 22, creatinine 0.80, carbon dioxide 34, calcium 10.8, total bilirubin 2.4, direct bilirubin 0, indirect bilirubin 2.1. Urine was positive for 2+ protein, 1+ blood, positive nitrates, 3+ leukocyte esterase, 6 to 10 RBC, greater than 100 WBC, and 4+ bacteria. Chest x-ray showed prominent markings in the lower lobes which may reflect early pneumonia. He was given azithromycin ceftriaxone and is being admitted in this setting. Review of Systems Review of Systems: Unable to be obtained as the patient is nonverbal. [facility] Past Medical History Medical History (Updated 10/18/23 @ 15:28 by Santa Ledesma PA-C) Anxiety Arthritis Benign prostatic hyperplasia Cerebral palsy Constipation Gastroesophageal reflux disease Intellectual disability Perforated ulcer required surgery Seizures None since childhood. Septic bursitis Surgical History Surgical History (Updated 10/18/23 @ 15:18 by Santa Ledesma PA-C) History of bursectomy (07/2015) Excision electrode on bursa, left elbow for septic bursitis. History of cataract extraction History of laparotomy For perforated ulcer. Family History Family History Father Acute myocardial infarction, Onset Age: 47 Mother Acute myocardial infarction, Onset Age: 73 Sibling Heart disease Lung disease Social History Social History (Updated 10/18/23 @ 22:20 by Santa Ledesma PA-C) Social History: Legal guardian: Namita Mannyaryan and Leydi Tanner, sisters. Code status: Do not resuscitate. Smoking status: Never smoker Alcohol intake: never Substance use: never Substance use type: does not use Lack of Transportation: No Lack of Food: Never True Current Housing: I Have Housing Concerned About Future Housing: No Difficulty Paying Gas/Electric Bills: No Difficulty Paying for Meds: No Currently Unemployed: No Education: Never Attended/Kindergarten Only Difficulty w/ Childcare or Family Care: No Living arrangements: with family Additional living arrangements comments: Lives with sister who is his legal guardian. Wheelchair-bound now but can stand and pivot. Spiritual care concerns: No Meds Home Medications and Allergies Home Medications Medication Instructions Recorded Confirmed Type tamsulosin 0.4 mg capsule 0.8 mg PO DAILY #180 caps 02/05/23 10/18/23 Rx finasteride 5 mg tablet See Rx Instructions .Route 07/08/23 10/18/23 Rx .COMPLEX #90 tabs tramadol 50 mg tablet 5
[2023-10-18 15:12] LABS: Bilirubin Indirect 2.1 mg/dL (0-1.1)
[2023-10-18] MEDS: AZITHROMYCIN 500 MG/NS 250 ML 500 MG/250 ML BAG 250 MG IVPB (15:23)
[2023-10-18 15:44] LABS: Influenza A QL RT-PCR Negative (Negative); Influenza B QL RT-PCR Negative (Negative); RSV RNA, RT-PCR Negative (Negative); SARS-CoV-2 RNA PCR Negative (Negative)
--- NOTE | 2023-10-18 16:50 | ADMGEN ---
This patient, Harry Hensley, was admitted to [facility] Surg Room 320-01. Patient/family oriented to hospital policies and general routines including ID bracelet, bed and alarms, visiting hours, pain management, procedures, bathroom and other care routines, personal items, smoking policy, room service/diet, and visiting hours. Information on how to activate the Rapid Response Team has been discussed. Patient/Family are encouraged to report perceived risks to care and to ask questions if they do not understand what they are told or what they should do.
[2023-10-18] MEDS: traMADol HCL (*CRX) 50 MG TABLET PO (19:01)
[2023-10-18] MEDS: ACETAMINOPHEN 325 MG TABLET 650 MG PO (22:01)
[2023-10-19] VITALS (7 sets, daily range): BP systolic 126–165; BP diastolic 68–82; PULSE 85–103; RESP 16–18; TEMP 36.7–36.9; O2SAT 94–98
[2023-10-19 06:48] LABS: Hemoglobin 14.3 g/dL (14.0-18.0); Mean Corpuscular Hemoglobin 32.4 pg (26-34); Mean Corpuscular Volume 95.2 fl (80-100); Mean Platelet Volume 9.5 fl (7.4-10.4); Platelet Count Result 200 k/mm3 (150-375); Red Blood Count 4.41 M/mm3 (4.6-6.20); Red Cell Distribution Width 13.3 % (11.5-14.5); White Blood Count 7.5 K/mm3 (4.5-10.0)
[2023-10-19 07:00] LABS: Anion Gap 9 mmol/L (4-12); Blood Urea Nitrogen 18 mg/dL (9-20); Calcium 10.6 mg/dL (8.4-10.2); Carbon Dioxide 27 mmol/L (22-30); Chloride 105 mmol/L (98-107); Estimated CRCL calculation 71 ml/min; Estimated Glomerular Filt Rate > 60; Glucose 95 mg/dL (65-110); Magnesium 1.9 mg/dL (1.6-2.3); Potassium 3.7 mmol/L (3.4-5.0); Sodium 141 mmol/L (137-145)
[2023-10-19] MEDS: PANTOPRAZOLE 40 MG TABLET PO (08:41)
[2023-10-19] MEDS: traMADol HCL (*CRX) 50 MG TABLET PO ×2 (08:41→20:07)
[2023-10-19] MEDS: FINASTERIDE 5 MG TABLET BY MOUTH (08:42)
[2023-10-19] MEDS: TAMSULOSIN HCL 0.4 MG CAPSULE 0.8 MG PO (08:42)
--- NOTE | 2023-10-19 09:48 | PM.IMPN ---
Progress Note: A&P Assessment and Plan (1) Urinary tract infection: Code(s): N39.0 - Urinary tract infection, site not specified Status: Acute Assessment and Plan: Patient presents with urine incontinence and found to have abnormal UA. UA is consistent with UTI. UCx collected. Rocephin started. No clinical evidence of retention. Old cultures reviewed. UCx pending. Follow up on UCx results. (2) Abnormal chest x-ray: Code(s): R93.89 - Abnormal findings on diagnostic imaging of other specified body structures Status: Acute Assessment and Plan: CXR showing prominent markings in the lower lobes. Consider PNA No oxygen requirement. No obvious cough He does having underlying dysphagia noted by speech therapy evaluation in 2022. Appropriate diet ordered and he is tolerating this well. Azithromycin added to cover for CAP. Consider adding abx to cover for aspiration but seems to be doing well so will monitor for now. 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 (4) Benign prostatic hyperplasia: Code(s): N40.0 - Benign prostatic hyperplasia without lower urinary tract symptoms Status: Acute Assessment and Plan: No clinical evidence of urine retention. Continue Proscar and Flomax (5) Severe intellectual disabilities: Code(s): F72 - Severe intellectual disabilities Status: Acute Assessment and Plan: Stable Plan Chronic constipation - add Miralax Hypercalcemia - mildly elevated Calcium noted. Could be related to bedrest. Check iPTH. Hold VitD. Diet: [place] thickened liquids and minced and moist diet ordered. Code status: DNR DVT prophylaxis: SCDs Disp: The patient's sister's and legal guardians are in the process of trying to get him into [facility] in [place] and care coordination has been consulted to see if they could help. PT/OT ordered Subjective Date/time seen: 10/19/23 09:48 Interval history: 78yo male with hx of UTI, BPH, cerebral palsy, and intellectual disability who presented to the emergency department via private vehicle accompanied by his sister for evaluation of urinary incontinence. Patient is alert but mostly nonverbal at this time. RN states patient was yelling out at night. He has hx of constipation per RN and only had a small 'pebble' BM. Review of Systems Review of Systems: ROS unobtainable: Yes unobtainable due to mental status Exam Narrative: AF 98.4 148/59 86 16 94% ra Gen - thin male in NARD Chest - clear anteriorly with faint crackles in the flanks. nml RR CV - RRR S1/S2 Abd - Soft, NT/ND, Positive BS Back - right winging of the scapula Ext - No pedal edema. muscle atrophy but UE/LE. Neuro - Alert. He attempts to communicate. 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 Objective Data Vital Signs Vital Signs: Vital Signs - 24 hr 10/18/23 11:35 10/18/23 13:09 10/18/23 12:42 Temperature 98.3 F Pulse Rate 83 70 76 Respiratory Rate 14 18 15 Blood Pressure 134/63 118/64 135/71 Pulse Oximetry 97 99 99 Oxygen Delivery Room Air 10/18/23 13:01 10/18/23 14:45 10/18/23 14:58 Temperature Pulse Rate 69 77 81 Respiratory Rate 13 15 17 Blood Pressure 118/64 136/68 Pulse Oximetry 99 Oxygen Delivery 10/18/23 15:00 10/18/23 15:01 10/18/23 15:15 Temperature Pulse Rate 79 77 80 Respiratory Rate 20 17 18 Blood Pressure 143/73 H Pulse Oximetry Oxygen Delivery 10/18/23 15:30 10/18/23 16:30 10/18/23 16:50 Temperature Pulse Rate 81 77 Respiratory Rate 17 19 Blood Pressure 139/79 Pulse Oximetry 99 Oxygen Delivery Room Air 10/18/23 17:11 10/18/23 20:00 10/18/23 21:29 Temperature 98.6 F
[2023-10-19] MEDS: polyethylene glycoL 3350 17 GM POWD.PACK PO (10:33)
--- NOTE | 2023-10-19 12:05 | PCPTNOTE ---
On 10/19/23, the student, [Madeline Porter], provided care and completed [facility] documentation on this patient. I have reviewed the student's documentation and agree with the findings.
[2023-10-19] MEDS: AZITHROMYCIN 500 MG/NS 250 ML 500 MG/250 ML BAG 250 MG IVPB (14:55)
[2023-10-20] MEDS: ACETAMINOPHEN 325 MG TABLET 650 MG PO (05:51)
[2023-10-20 05:57] VITALS: BP 148/84; PULSE 80; RESP 18; TEMP 37.1; O2SAT 96
[2023-10-20 07:04] LABS: Parathyroid Intact < 14.5 pg/mL (14.5-75.2)
[2023-10-20 08:00] VITALS: PULSE 80; RESP 18; O2SAT 96
[2023-10-20] MEDS: polyethylene glycoL 3350 17 GM POWD.PACK PO (09:17)
[2023-10-20] MEDS: FINASTERIDE 5 MG TABLET BY MOUTH (09:17)
[2023-10-20] MEDS: PANTOPRAZOLE 40 MG TABLET PO (09:17)
[2023-10-20] MEDS: TAMSULOSIN HCL 0.4 MG CAPSULE 0.8 MG PO (09:17)
--- NOTE | 2023-10-20 09:34 | WPDNEUROLOGY ---
Neurology EEG Report General Information Date of Study: 10/20/23 TEST eeg DIAGNOSIS Questionable seizures CONDITION OF RECORDING awake with multiple movements artifacts EEG NUMBER 24-150 CLINICAL HISTORY patient is nonverbal and unable to give any history. Examination was stopped early due to patient's pulling of electrodes. EEG DESCRIPTION Background rhythm consists of 8 to 10 hertz per 2nd low-voltage alpha seen posteriorly admixed with low-voltage 15 to 18 hertz per 2nd beta and multiple movement artifacts throughout the tracing. Hyperventilation could not be done. Photic stimulation could not be done. Non paroxysmal nonfocal nonlateralizing. IMPRESSION Probably normal record during wakefulness but studies Compro Isabel by multiple movement artifacts so clinical correlation recommended. There is no kellie and obvious evidence of paroxysmal activity.
[2023-10-20 09:42] LABS: Vitamin D 25 Hydroxy 57.9 ng/mL
[2023-10-20 14:00] VITALS: BP 129/68; PULSE 73; RESP 20; TEMP 36.9; O2SAT 96
--- NOTE | 2023-10-20 15:00 | WPDPN ---
Progress Note: A&P Assessment and Plan (1) Aspiration pneumonia: Code(s): J69.0 - Pneumonitis due to inhalation of food and vomit Status: Acute (2) Urinary tract infection: Code(s): N39.0 - Urinary tract infection, site not specified Status: Acute (3) Intellectual disability: Code(s): F79 - Unspecified intellectual disabilities Status: Acute (4) Cerebral palsy: Code(s): G80.9 - Cerebral palsy, unspecified Status: Acute Plan Patient is alert but mostly nonverbal at this time. there was concern patient may had a seizure episode, EEG was ordered but patient was not cooperative and results are not conclusive, patient spoke with patient who is present in the room, she is working with patient care director for placement. patient urine culture is growing Proteus mirabilis resistant to ciprofloxacin and Levaquin, sensitive to Rocephin however patient is pulling his IV unable to maintain IV antibiotic will switch over patient to cefdinir will continue to monitor. Patient with pneumonia being treated with Rocephin and azithromycin, will switch antibiotic to p.o. as patient is confused and poorly IVs Subjective Date/time seen: 10/20/23 15:00 Interval history: 78yo male with hx of UTI, BPH, cerebral palsy, and intellectual disability who presented to the emergency department via private vehicle accompanied by his sister for evaluation of urinary incontinence. Patient is alert but mostly nonverbal at this time. there was concern patient may had a seizure episode, EEG was ordered but patient was not cooperative and results are not conclusive, patient spoke with patient who is present in the room, she is working with patient care director for placement. patient urine culture is growing Proteus mirabilis resistant to ciprofloxacin and Levaquin, sensitive to Rocephin however patient is pulling his IV unable to maintain IV antibiotic will switch over patient to cefdinir will continue to monitor. Patient with pneumonia being treated with Rocephin and azithromycin, will switch antibiotic to p.o. as patient is confused and poorly IVs Objective Data Vital Signs Vital Signs: Vital Signs - 24 hr 10/19/23 20:00 10/19/23 22:00 10/20/23 05:57 Temperature 36.9 C 37.1 C Pulse Rate 103 H 88 80 Respiratory Rate 18 16 18 Blood Pressure 126/68 148/84 H Pulse Oximetry 97 97 96 Oxygen Delivery Room Air Intake/Output Intake/Output: Intake & Output 10/17/23 10/18/23 10/19/23 10/20/23 23:59 23:59 23:59 23:59 Intake Total 540 895 720 Output Total 50 200 Balance 490 695 720 Meds/Results Medications: Active Medications Generic Name Dose Route Start Last Admin Trade Name Freq PRN Reason Stop Dose Admin Acetaminophen 650 mg 10/18/23 15:06 10/20/23 05:51 Acetaminophen 325 Mg Tablet PO 650 mg Q4H PRN Administration Mild Pain (1-3) or Fever Azithromycin 500 mg 10/20/23 13:15 Azithromycin 250 Mg Tablet PO 10/22/23 09:01 DAILY CHARANJIT Finasteride 5 mg 10/19/23 09:00 10/20/23 09:17 Finasteride 5 Mg Tablet BY MOUTH 5 mg DAILY CHARANJIT Administration Ceftriaxone Sodium 1 gm in 50 mls @ 100 mls/hr 10/19/23 14:00 10/19/23 14:55 Rocephin 1 Gm/Ns 50 Ml IVPB 100 mls/hr Q24H CHARANJIT Administration Ondansetron HCl 4 mg 10/18/23 15:06 Ondansetron Inj 4 Mg/2 Ml Vial IV PUSH Q4H PRN Nausea Pantoprazole Sodium 40 mg 10/19/23 09:00 10/20/23 09:17 Pantoprazole 40 Mg Tablet PO 40 mg QAM CHARANJIT Administration Polyethylene Glycol 17 gm 10/19/23 10:05 10/20/23 09:17 Polyethylene Glycol 3350 17 Gm Powd.Pack PO 17 gm QAM CHARANJIT Administration Tamsulosin HCl 0.8 mg 10/19/23 09:00 10/20/23 09:17 Tamsulosin Hcl 0.4 Mg Capsule PO 0.8 mg DAILY CHARANJIT Administration Tramadol HCl 50 mg 10/18/23 17:53 10/19/23 20:07 Tramadol Hcl (*Crx) 50 Mg Tablet PO 50 mg BID PRN Administration pain 4-6 Radiology Results: ITS
[2023-10-20] MEDS: AZITHROMYCIN 250 MG TABLET 500 MG PO (17:25)
[2023-10-20] MEDS: AMOXICILLIN/CLAVULANATE K 875-125 MG TAB 1 TABLET PO (17:48)
[2023-10-20 20:41] VITALS: BP 142/67; PULSE 88; RESP 18; TEMP 36.7; O2SAT 96
[2023-10-20] MEDS: traMADol HCL (*CRX) 50 MG TABLET PO (21:10)
[2023-10-21 06:00] VITALS: BP 155/90; PULSE 91; RESP 20; TEMP 37; O2SAT 96
[2023-10-21 07:07] LABS: Hematocrit 39.3 % (42.0-52.0); Hemoglobin 12.9 g/dL (14.0-18.0); Mean Corpuscular HGB Conc 32.8 g/dl (32-36); Mean Corpuscular Hemoglobin 32.3 pg (26-34); Mean Corpuscular Volume 98.3 fl (80-100); Mean Platelet Volume 9.8 fl (7.4-10.4); Platelet Count Result 172 k/mm3 (150-375); Red Cell Distribution Width 13.4 % (11.5-14.5); White Blood Count 4.9 K/mm3 (4.5-10.0)
[2023-10-21 07:11] LABS: Anion Gap 3 mmol/L (4-12); Blood Urea Nitrogen 22 mg/dL (9-20); Calcium 10.3 mg/dL (8.4-10.2); Carbon Dioxide 34 mmol/L (22-30); Chloride 103 mmol/L (98-107); Estimated CRCL calculation 54 ml/min; Estimated Glomerular Filt Rate > 60; Glucose 95 mg/dL (65-110); Potassium 3.6 mmol/L (3.4-5.0); Sodium 140 mmol/L (137-145)
[2023-10-21] MEDS: PANTOPRAZOLE 40 MG TABLET PO (08:35)
[2023-10-21] MEDS: TAMSULOSIN HCL 0.4 MG CAPSULE 0.8 MG PO (08:35)
[2023-10-21] MEDS: AZITHROMYCIN 250 MG TABLET 500 MG PO (08:35)
[2023-10-21] MEDS: AMOXICILLIN/CLAVULANATE K 875-125 MG TAB 1 TABLET PO ×2 (08:35→17:07)
[2023-10-21] MEDS: FINASTERIDE 5 MG TABLET BY MOUTH (08:35)
[2023-10-21] MEDS: polyethylene glycoL 3350 17 GM POWD.PACK PO (08:36)
[2023-10-21 09:47] LABS: Ionized Calcium 5.8 mg/dL (4.7-5.5)
--- NOTE | 2023-10-21 10:37 | WPDPN ---
Progress Note: A&P Assessment and Plan (1) Aspiration pneumonia: Code(s): J69.0 - Pneumonitis due to inhalation of food and vomit Status: Acute (2) Urinary tract infection: Code(s): N39.0 - Urinary tract infection, site not specified Status: Acute (3) Intellectual disability: Code(s): F79 - Unspecified intellectual disabilities Status: Acute (4) Cerebral palsy: Code(s): G80.9 - Cerebral palsy, unspecified Status: Acute Plan 78yo male with hx of UTI, BPH, cerebral palsy, and intellectual disability who presented to the emergency department via private vehicle accompanied by his sister for evaluation of urinary incontinence. Patient is alert but mostly nonverbal at this time. patient caregiver is present this morning and feeding the patient. there was concern patient may had a seizure episode, EEG was ordered but patient was not cooperative and results are not conclusive, on 10/19 patient spoke with patient's sister who was present in the room, she is working with career and transition teacher for placement. patient urine culture is growing Proteus mirabilis resistant to ciprofloxacin and Levaquin, sensitive to Rocephin however patient is pulling his IV unable to maintain IV antibiotic, discussed with ID pharmacist and started the patient on Augmentin and zithromycin, will continue to monitor. Patient with pneumonia being treated with Rocephin and azithromycin, will switch antibiotic to p.o. as patient is confused and pulling IVs Subjective Date/time seen: 10/21/23 10:37 Interval history: 78yo male with hx of UTI, BPH, cerebral palsy, and intellectual disability who presented to the emergency department via private vehicle accompanied by his sister for evaluation of urinary incontinence. Patient is alert but mostly nonverbal at this time. patient caregiver is present this morning and feeding the patient. there was concern patient may had a seizure episode, EEG was ordered but patient was not cooperative and results are not conclusive, on 10/19 patient spoke with patient's sister who was present in the room, she is working with career and transition teacher for placement. patient urine culture is growing Proteus mirabilis resistant to ciprofloxacin and Levaquin, sensitive to Rocephin however patient is pulling his IV unable to maintain IV antibiotic, discussed with ID pharmacist and started the patient on Augmentin and zithromycin, will continue to monitor. Patient with pneumonia being treated with Rocephin and azithromycin, will switch antibiotic to p.o. as patient is confused and pulling IVs Review of Systems Review of Systems: ROS unobtainable: Yes unobtainable due to mental status Exam Narrative: Elderly frail Patient is comfortable, NAD HEENT: eyes are clear and none icteric LUNGS:CTA HEART: RR S1S2 ABD: BS+, Soft and nontender Lower extremities: no edema SKIN: nonjaundiced Neuro: grossly intact. Objective Data Vital Signs Vital Signs: Vital Signs - 24 hr 10/20/23 14:00 10/20/23 20:41 10/21/23 06:00 Temperature 36.9 C 36.7 C 37.0 C Pulse Rate 73 88 91 Respiratory Rate 20 18 20 Blood Pressure 129/68 142/67 H 155/90 H Pulse Oximetry 96 96 96 Oxygen Delivery 10/21/23 08:00 Temperature Pulse Rate Respiratory Rate Blood Pressure Pulse Oximetry Oxygen Delivery Room Air Intake/Output Intake/Output: Intake & Output 10/18/23 10/19/23 10/20/23 10/21/23 23:59 23:59 23:59 23:59 Intake Total 540 895 840 360 Output Total 50 200 Balance 490 695 840 360 Meds/Results Medications: Active Medications Generic Name Dose Route Start Last Admin Trade Name Freq PRN Reason Stop Dose Admin Acetaminophen 650 mg 10/18/23 15:06 10/20/23 05:51 Acetaminophen 325 Mg Tablet PO 650 mg Q4H PRN Administration Mild Pain (1-3) or Fever Amoxicillin/Clavulanate Potassium 1 tablet 10/20/23 17:00 10/21/23 08:35 Amoxicillin/Clavulanate K 875-125 Mg Ta
[2023-10-21 14:00] VITALS: BP 111/57; PULSE 100; RESP 18; TEMP 37.1; O2SAT 100
[2023-10-21] MEDS: ACETAMINOPHEN 325 MG TABLET 650 MG PO (15:10)
[2023-10-21] MEDS: traMADol HCL (*CRX) 50 MG TABLET PO (15:11)
[2023-10-21 21:10] VITALS: BP 117/67; PULSE 97; RESP 18; TEMP 36.9; O2SAT 97
[2023-10-22 06:00] VITALS: BP 163/66; PULSE 90; RESP 16; TEMP 36.4; O2SAT 97
[2023-10-22 07:08] LABS: Hemoglobin 13.2 g/dL (14.0-18.0); Mean Corpuscular HGB Conc 33.8 g/dl (32-36); Mean Corpuscular Hemoglobin 32.5 pg (26-34); Mean Corpuscular Volume 96.1 fl (80-100); Mean Platelet Volume 9.4 fl (7.4-10.4); Platelet Count Result 186 k/mm3 (150-375); Red Blood Count 4.06 M/mm3 (4.6-6.20); Red Cell Distribution Width 13.2 % (11.5-14.5); White Blood Count 6.9 K/mm3 (4.5-10.0)
[2023-10-22 07:17] LABS: Anion Gap 5 mmol/L (4-12); Blood Urea Nitrogen 22 mg/dL (9-20); Calcium 10.2 mg/dL (8.4-10.2); Carbon Dioxide 34 mmol/L (22-30); Chloride 100 mmol/L (98-107); Estimated CRCL calculation 71 ml/min; Estimated Glomerular Filt Rate > 60; Glucose 98 mg/dL (65-110); Potassium 3.9 mmol/L (3.4-5.0); Sodium 139 mmol/L (137-145)
[2023-10-22] MEDS: PANTOPRAZOLE 40 MG TABLET PO (08:30)
[2023-10-22] MEDS: FINASTERIDE 5 MG TABLET BY MOUTH (08:30)
[2023-10-22] MEDS: TAMSULOSIN HCL 0.4 MG CAPSULE 0.8 MG PO (08:30)
[2023-10-22] MEDS: AZITHROMYCIN 250 MG TABLET 500 MG PO (08:30)
[2023-10-22] MEDS: AMOXICILLIN/CLAVULANATE K 875-125 MG TAB 1 TABLET PO (08:30)
[2023-10-22] MEDS: polyethylene glycoL 3350 17 GM POWD.PACK PO (08:31)
--- NOTE | 2023-10-22 11:14 | PM.DS ---
DS: Admitting Diagnosis Discharge Date 10/22/23 Admitting Diagnosis Urine incontinence. DS: Discharge Diagnosis Discharge Diagnosis (1) Aspiration pneumonia: Code(s): J69.0 - Pneumonitis due to inhalation of food and vomit Status: Acute (2) Cerebral palsy: Code(s): G80.9 - Cerebral palsy, unspecified Status: Acute (3) Urinary tract infection: Code(s): N39.0 - Urinary tract infection, site not specified Status: Acute (4) Abnormal chest x-ray: Code(s): R93.89 - Abnormal findings on diagnostic imaging of other specified body structures Status: Acute DS: Summary Hospital Course Hospital Course: Patient is alert but mostly nonverbal at this time. patient caregiver is present this morning and feeding the patient. there was concern patient may had a seizure episode, EEG was ordered but patient was not cooperative and results are not conclusive, on 10/19 patient spoke with patient's sister who was present in the room, she is working with nurse behavioral health care for placement. patient urine culture is growing Proteus mirabilis resistant to ciprofloxacin and Levaquin, sensitive to Rocephin however patient is pulling his IV unable to maintain IV antibiotic, discussed with ID pharmacist and started the patient on Augmentin and zithromycin, will continue to monitor. Patient with pneumonia being treated with Rocephin and azithromycin, will switch antibiotic to p.o. as patient is confused and pulling IVs. patient sister is unable to find placement for the patient, will discharge patient with his sister, patient remains clinically stable and his baseline, will discharge patient on oral abx. Time Spent with Patient Time attestation: Total time spent providing and/or coordinating discharge services: Exam Narrative: Elderly frail Patient is comfortable, NAD HEENT: eyes are clear and none icteric LUNGS:CTA HEART: RR S1S2 ABD: BS+, Soft and nontender Lower extremities: no edema SKIN: nonjaundiced Neuro: grossly intact. DS: Data Data Completed and Pending Labs on day of discharge: Labs from last 24 hours 10/22/23 06:54 WBC 6.9 RBC 4.06 L Hgb 13.2 L Hct 39.0 L MCV 96.1 MCH 32.5 MCHC 33.8 RDW 13.2 Plt Count 186 MPV 9.4 Sodium 139 Potassium 3.9 Chloride 100 Carbon Dioxide 34 H Anion Gap 5 BUN 22 H Creatinine 0.60 L Estim Creat Clear Calc 71 Estimated GFR > 60 Glucose 98 Calcium 10.2 Magnesium 2.0 Discharge Plan Discharge Attending physician on discharge: Christian Hester Consulting providers: Santa Ledesma; Breezy Fishman; Jt Batista V.; Behzad Owen Discharging Clinician: Monica Garza Patient Disposition: Home, Self-Care Activity: as tolerated Diet: as tolerated Patient Instructions: Antibiotic Form, Urinary Tract Infection in Men (DC), Pneumonia (DC) Stand Alone Forms: General Discharge Information Follow-up/Referrals: Robert Ford MD [Primary Care Provider] - Discharge Medications: New amoxicillin-pot clavulanate [Augmentin] 500-125 mg tablet 1 tablet PO TID Qty: 15 0RF polyethylene glycol 3350 [Miralax] 17 gram Powder In Packet 17 g PO QAM Qty: 14 0RF Continued acetaminophen 500 mg tablet 1,000 mg PO TID PRN (Reason: Pain) cholecalciferol (vitamin D3) [Vitamin D3] 25 mcg (1,000 unit) Capsule 25 mcg PO DAILY tamsulosin 0.4 mg capsule 0.8 mg PO DAILY Qty: 180 3RF finasteride 5 mg tablet See Rx Instructions .ROUTE .COMPLEX Qty: 90 3RF Dose Instruction: TAKE 1 TABLET EVERY DAY Rx Instructions: TAKE 1 TABLET EVERY DAY tramadol 50 mg tablet 50 mg PO BID PRN (Reason: pain) Qty: 60 0RF omeprazole 20 mg capsule,delayed release(DR/EC) 20 mg PO DAILY Qty: 90 1RF Date of admission: 10/18/23 15:06 Primary Care Provider: Robert Ford Admitting Provider: Christian Hester Attending physician on admission: Monica Garza
[2023-10-23 13:08] LABS: Vitamin D 1,25 (OH)2 Total 57 pg/mL (18-72); Vitamin D2 1,25 (OH)2 <8 pg/mL; Vitamin D3 1,25 (OH)2 57 pg/mL
== END 2023-10-22 15:17 | disposition home or self-care (01) ==
LOC: ANHED 13:05 → ANH3MEDSUR 16:41
PROVIDERS: Physician Assistant; Admitting Provider Internal Medicine; Emergency Provider Student in an Organized Health Care Education/Training Program; PCP Emergency Medicine; Visit Provider Family Medicine
DX: J69.0 Pneumonitis due to inhalation of food and vomit (principal); N39.0 Urinary tract infection, site not specified; N40.1 Benign prostatic hyperplasia with lower urinary tract symptoms; E83.52 Hypercalcemia; R93.89 Abnormal findings on diagnostic imaging of other specified body structures; E80.6 Other disorders of bilirubin metabolism; F41.9 Anxiety disorder, unspecified; G80.9 Cerebral palsy, unspecified; K21.9 Gastro-esophageal reflux disease without esophagitis; Z99.3 Dependence on wheelchair; F72 Severe intellectual disabilities; K59.09 Other constipation; Z20.822 Contact with and (suspected) exposure to COVID-19
CPT/HCPCS: 36415; 70450; 71045; 80048; 80053; 81001; 82248; 82306; 82330; 82652; 83735; 83970; 84443; 85025; 85027; 87077; 87086; 87088; 87186; 87637; 95816; 96365; 96367; 96376; 97161; 97165; 99285; A9270; G0378; J0456; J0696

== ENCOUNTER 2023-11-02 12:24 | Outpatient (CLI) | payer MEDICARE, SELFPAY ==
--- NOTE | ~2023-11-02 | XR_ITS ---
Clinical Indication: Pneumonitis PA and lateral views of the chest: Comparison: 10/18/2023 Findings: There is left basilar haziness. Right lung clear. Cardiomediastinal silhouette is within n ormal limits. Stable dextroscoliosis. Impression: . Hazy left basilar airspace disease. Correlate for atelectasis or pneumonia. Reviewed, dictated and finalized at location . Impression: . Hazy left basilar airspace disease. Correlate for atelectasis or pneumonia.
== END 2023-11-02 12:25 | disposition home or self-care (01) ==
PROVIDERS: PCP Emergency Medicine; Visit Provider Emergency Medicine
DX: J69.0 Pneumonitis due to inhalation of food and vomit (principal); R91.8 Other nonspecific abnormal finding of lung field
CPT/HCPCS: 71046

== ENCOUNTER 2023-11-02 12:52 | Outpatient (CLI) | payer MEDICARE, SELFPAY ==
[2023-11-02 15:03] LABS: Add Urine Microscopic? YES; Appearance Urine Cloudy (Clear); Bacteria Urine Rare /hpf; Bilirubin Urine Negative (Negative); Blood Urine Negative (Negative); Calcium Oxalate Crystals Urine Present /hpf; Color Urine Yellow (Yellow); Glucose Urine UA Negative (Negative); Ketones Urine Negative (Negative); Leukocyte Esterase Ur 2+ LEU/UL (Negative); Mucus Urine Present /lpf; Need Manual Microscopic Reviewed; Nitrate Urine Negative (Negative); Non Pathogenic Casts >20; Protein Urine 2+ mg/dL (Negative); RBC Urine 21-50 /hpf (0-2); Specific Grav Ur 1.023 (1.001-1.035); Squamous Epithelial Cell Urine Few /hpf (Few); WBC Urine 21-50 /hpf (0-3); pH Urine 5.5 (5.0-9.0)
== END 2023-11-02 12:53 | disposition home or self-care (01) ==
LOC: ANHGOSHLAB 12:53
PROVIDERS: PCP Emergency Medicine; Visit Provider Emergency Medicine
DX: N39.0 Urinary tract infection, site not specified (principal)
CPT/HCPCS: 81001; 87086; 87088

== ENCOUNTER 2023-11-05 08:47 | Outpatient (CLI) | payer MEDICARE, SELFPAY ==
--- NOTE | ~2023-11-05 | US_ITS ---
Limited Abdominal Sonogram: Real-time sonographic imaging of the right upper quadrant was performed. Clinical History: Jaundice Findings: The liver appears normal with no evidence of mass lesion or bile duct dilatation. Main por michelle vein demonstrates normal direction of flow. The gallbladder is not visualized. The common bile du ct measures 4 mm. The pancreas is obscured by bowel gas shadowing. Visualized IVC/aorta are unremark able Impression: No significant abnormality seen. Pancreas and gallbladder not visualized. Reviewed, dictated and finalized at location . Impression: No significant abnormality seen. Pancreas and gallbladder not visualized.
== END 2023-11-05 08:48 | disposition home or self-care (01) ==
LOC: GOSHIMG 08:48
PROVIDERS: PCP Emergency Medicine; Visit Provider Emergency Medicine
DX: R17 Unspecified jaundice (principal); R74.8 Abnormal levels of other serum enzymes
CPT/HCPCS: 76705

== ENCOUNTER 2023-12-07 12:34 | Outpatient (RCR) | payer MEDICARE, SELFPAY ==
--- NOTE | 2023-12-07 14:11 | STOPEVDC ---
Assessment and note entered by Namita Chance W[employer]OR [employer]ER Thank you for referring Harry Hensley to [facility] [place].? An evaluation has been completed. No further treatment is needed. Evaluation Information Assessment Status Evaluation Subjective Information Patient's sister reports that patient has been coughing for quite a while, His caregiver reports that she feels that everything tickles him and makes him cough or sticks in his throat. They report that patient's swallowing has been evaluated in the past and that he was placed on thickener at that time. Currently they Puree his food and thicken liquids to nectar consistency. They indicate that results vary, sometimes he coughs, sometimes not. Reported Pain Level Pain Score 0: Self Report Assessment ST Clinical Summary BEDSIDE SWALLOW EVALUATION This patient was seen for a Bedside Swallow Evaluation after being diagnosed with penumonitis following inhalation of food/vomit in September of 2023. Patient's sister, Anne, and assistant professor of biology were present and answered questions for patient who was vocal but nonverbal. They report that he does cough when eating/drinking and they have been instructed to puree his food and add thickener to nectar thick liquid consistency to avoid aspiration. Nonetheless, he continues to exhibit lung issues requiring ED visits and/or admission to the hospital. Patient was presented with applesauce, nectar thick water, and fruit cocktail and exhibited no difficulty until he attempted to consume the fruit cocktail. Patient has no dentition and sister voiced concerns about the mixed consistency. After consuming several pieces of fruit, he began to cough and eventually expectorated one piece of the fruit. Patient was unable to sustain ah ( attempted several times but not longer than 1 second), or attempt hard, effortful swallows. Results suggest this patient remains at risk for aspiration, most likely on most consistencies. He may remain on Pureed Diet and Mildly ([place]) Thick Liquids at this time with safe swallowing instructions in place. Sister and assistant professor of biology were instructed in the following safe swallowing suggestions: encourage head flexio
== END 2023-12-08 11:51 | disposition home or self-care (01) ==
LOC: ANHST 12:34
PROVIDERS: PCP Nurse Practitioner Family; Visit Provider Nurse Practitioner Family
DX: J69.0 Pneumonitis due to inhalation of food and vomit (principal); F72 Severe intellectual disabilities
CPT/HCPCS: 92610

== ENCOUNTER 2023-12-13 09:19 | Observation (INO) | payer MEDICARE, MEDICAID, SELFPAY ==
--- NOTE | ~2023-12-13 | CT_ITS ---
EXAMINATION: CT brain wo con DATE: 12/14/2023 00:02 INDICATION: Fall. TECHNIQUE: Computed tomography (CT) of the head was performed without intravenous contrast. The mA wa s adjusted according to patient size. Iterative reconstruction technique was employed. The dose-lengt h product was 983.67 mGy-cm. 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 There is no intracranial hemorrhage, acute i nfarction, or abnormal intracranial mass lesion. There is ex vacuo dilatation of right lateral ventri sandoval. There is mild mucosal thickening in the paranasal sinuses. There are likely changes of ocular le ns replacement surgeries. The mastoid air cells are normal. IMPRESSION: 1. 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 Reviewed, dictated and finalized at location A.
--- NOTE | ~2023-12-13 | XR_ITS ---
EXAMINATION: XR elbow LT min 3V DATE: 12/13/2023 23:59 INDICATION: Left elbow injury. TECHNIQUE: 4 views of left elbow were obtained. COMPARISON: Left elbow radiographs 03/27/2023 FINDINGS: Bone alignment is normal. No fracture. Joint spaces are normal. No elbow joint effusion. IMPRESSION: 1. No fracture. Reviewed, dictated and finalized at location A. IMPRESSION: 1. No fracture.
--- NOTE | ~2023-12-13 | XR_ITS ---
XR chest 1V portable Ordering provider: Troy Osorio APRN History: 78 years Male with . aspiration . Comparison: November 02, 2023 FINDINGS: MEDIASTINUM: The cardiac silhouette is not enlarged. LUNGS: No effusions or pneumothorax. Opacification in the right upper lobe suggestive of atelectasis versus pneumonia. Opacification in the left lung base medially suggestive of atelectasis versus pneum onia. OTHER: No free air under the diaphragm. IMPRESSION: Atelectasis versus pneumonia in the right upper lobe. Atelectasis versus pneumonia in the left lung base medially. Reviewed, dictated and finalized at location A.
--- NOTE | ~2023-12-13 | XR_ITS ---
EXAMINATION: XR abdomen/kub 1V DATE: 12/14/2023 13:13 INDICATION: Fecal impaction. TECHNIQUE: A supine view of the abdomen was obtained. COMPARISON: CT abdomen and pelvis 12/13/2023 FINDINGS: There is dilated small bowel in left abdomen. The colon is distended. There is a moderate v olume of stool in the colon. IMPRESSION: 1. Dilated small and large bowel, likely adynamic ileus. Reviewed, dictated and finalized at location A.
--- NOTE | ~2023-12-13 | XR_ITS ---
EXAMINATION: XR shoulder LT min 2V DATE: 12/13/2023 23:59 INDICATION: Left shoulder injury. TECHNIQUE: 3 views of left shoulder were obtained. COMPARISON: None. FINDINGS: Alignment is normal. No fracture. There is mild osteoarthritis of glenohumeral joint and mo derate osteoarthritis of acromioclavicular joint. IMPRESSION: 1. Polyarticular osteoarthritis. Reviewed, dictated and finalized at location A.
--- NOTE | ~2023-12-13 | CT_ITS ---
EXAMINATION: CT facial bones wo con DATE: 12/14/2023 00:02 INDICATION: Facial injury. Fall. TECHNIQUE: Computed tomography (CT) of the facial bones and maxillofacial region was performed withou t intravenous contrast. Automated exposure control and iterative reconstruction technique were employ ed. The dose-length product was 323.38 mGy-cm. COMPARISON: Maxillofacial CT 01/30/2023 FINDINGS: There are likely changes of ocular lens replacement surgeries. There is leftward deviation of the nasal septum. There is mucosal thickening in the paranasal sinuses. The mastoid air cells are normal. There is severe cervical spondylosis. IMPRESSION: 1. No fracture. Reviewed, dictated and finalized at location A. IMPRESSION: 1. No fracture.
--- NOTE | ~2023-12-13 | XR_ITS ---
EXAMINATION: XR hand LT min 3V DATE: 12/13/2023 23:59 INDICATION: Left hand injury. TECHNIQUE: 3 views of left hand were obtained. COMPARISON: None. FINDINGS: Alignment is normal. No fracture. There is mild osteoarthritis of radioscaphoid joint, zack caphe joint, first carpometacarpal joint, and some of the interphalangeal joints. IMPRESSION: 1. Mild polyarticular osteoarthritis. Reviewed, dictated and finalized at location A.
--- NOTE | ~2023-12-13 | CT_ITS ---
CT of the Abdomen and Pelvis: Indication: Elevated bilirubin, urinary retention Technique: 2.5 mm axial scans were obtained through the abdomen and pelvis following intravenous adm inistration of 100 cc of Omnipaque 350. Dose reduction technique was used on this scan by utilizing a utomated exposure control and iterative reconstruction technique. The dose-length product (DLP) was 4 66.53 mGy-cm. COMPARISON: 02/17/2022 Findings: Exam mildly degraded by motion artifact. Scans through the lung bases are unremarkable. The liver, spleen, pancreas, gallbladder, adrenals and kidneys are within normal limits. No evidence of aortic aneurysm. No lymphadenopathy. Extremely large amount of stool present at the rectum/distal sigmoid colon with stercoral proctitis a nd fecal impaction. Prominent stool in the remainder of the large bowel. Small bowel unremarkable. Images through the pelvis were performed. Urinary bladder unremarkable. 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 Probable mild chronic compress ion of L1. Impression: Fecal impaction and constipation with stercoral proctitis. Chronic osseous findings in the spine, as above. Reviewed, dictated and finalized at location . Impression: Fecal impaction and constipation with stercoral proctitis. Chronic osseous findings in the spine, as above.
[2023-12-13 09:20] VITALS: BP 159/93; PULSE 82; RESP 16; TEMP 36.6; O2SAT 98
--- NOTE | 2023-12-13 09:31 | ED.GENADULT ---
HPI - General Adult General Chief complaint: Urogenital-Male Stated complaint: uti Time Seen by Provider: 12/13/23 09:31 Mode of arrival: EMS Limitations: other ( chronically nonverbal, family not at bedside on arrival) History of Present Illness HPI narrative: This is a 78-year-old nonverbal male patient arrives via EMS with complaint of urinary incontinence and urinary retention ongoing for the last 3 days at home, concern for urinary tract infection. Patient's sister takes care of him routinely at home and contacted primary care office today with complaints they recommended evaluation in the emergency department. EMS was called for transport. Family not present at time of arrival in the emergency department. Paperwork from recent EGD in September was present. Related Data Home Medications Medication Instructions Recorded Confirmed cholecalciferol (vitamin D3) 25 25 mcg PO DAILY 10/05/23 10/28/23 mcg (1,000 unit) capsule (Vitamin D3) acetaminophen 500 mg tablet 1,000 mg PO TID PRN Pain 10/18/23 10/28/23 Allergies Allergy/AdvReac Type Severity Reaction Status Date / Time doxycycline Allergy Mild Rash Verified 10/28/23 09:58 Review of Systems Review of Systems: ROS unobtainable: Yes other ( Chronically nonverbal) [facility] Past Medical History Medical History Anxiety Arthritis Benign prostatic hyperplasia Cerebral palsy Constipation Gastroesophageal reflux disease Intellectual disability Perforated ulcer required surgery Seizures None since childhood. Septic bursitis Surgical History Surgical History History of bursectomy (07/2015) Excision electrode on bursa, left elbow for septic bursitis. History of cataract extraction History of laparotomy For perforated ulcer. Family History Family History Father Acute myocardial infarction, Onset Age: 47 Mother Acute myocardial infarction, Onset Age: 73 Sibling Heart disease Lung disease Social History Social History Social History: Legal guardian: Namita Mannyaryan and Leydi Tanner, sisters. Code status: Do not resuscitate. Smoking status: Never smoker Alcohol intake: never Substance use: never Substance use type: does not use Lack of Transportation: No Lack of Food: Never True Current Housing: I Have Housing Concerned About Future Housing: No Difficulty Paying Gas/Electric Bills: No Difficulty Paying for Meds: No Currently Unemployed: No Education: Never Attended/Kindergarten Only Difficulty w/ Childcare or Family Care: No Living arrangements: with family Additional living arrangements comments: Lives with sister who is his legal guardian. Wheelchair-bound now but can stand and pivot. Spiritual care concerns: No Exam Narrative: GENERAL: Non-verbal, awake and interactive HEAD: Normocephalic, atraumatic. ENT:? Mucous membranes dry. CHEST: Clear to auscultation.? No respiratory distress. HEART: Regular rate and irregular rhythm. ? Normal peripheral pulses. ABDOMEN: Suprapubic tenderness to palpation, bladder scan 370 mL EXTREMITIES: Normal range of motion. No peripheral edema. SKIN: Warm dry, mildly pale NEURO: Non-verbal, moves all extremities PSYCH: Unable to assess due to chronic disability Course Course Emergency Course: Straight cath for urine. UA without signs of UTI but show signs consistent with dehydration. Calcium elevated, no cancer history. WBC normal. Bilirubin elevated. CT abdomen pelvis shows significant constipation/obstruction. Will admit for enemas and case management consult as family trying to get patient into skilled nursing for better care. he requires thickened liquids and soft diet related to swallowing difficult
[2023-12-13 09:48] LABS: Basophils Percent Auto 0.5 % (0.2-1.2); Eosinophils Percent Auto 0.1 % (0-4.4); Hemoglobin 14.4 g/dL (14.0-18.0); Immature Granulocyte Absolute 0.04 K/mm3 (0.00-0.031); Immature Granulocyte Percent A 0.5 % (0-0.5); Lymphocytes Percent Auto 13.1 % (18.3-44.2); Mean Corpuscular HGB Conc 33.5 g/dl (32-36); Mean Corpuscular Hemoglobin 32.4 pg (26-34); Mean Corpuscular Volume 96.6 fl (80-100); Mean Platelet Volume 9.5 fl (7.4-10.4); Monocytes Absolute Auto 0.6 K/mm3 (0.1-0.6); Monocytes Percent Auto 7.8 % (2.6-8.5); Platelet Count Result 208 k/mm3 (150-375); Red Blood Count 4.45 M/mm3 (4.6-6.20); Red Cell Distribution Width 13.1 % (11.5-14.5); White Blood Count 7.7 K/mm3 (4.5-10.0)
[2023-12-13 10:00] LABS: Alanine Aminotransferase 49 U/L (6-50); Albumin Level 3.3 g/dL (3.5-5.1); Alkaline Phosphatase 116 U/L (38-126); Anion Gap 0 mmol/L (4-12); Aspartate Amino Transferase 53 U/L (17-59); Bilirubin,Total 2.3 mg/dL (0.2-1.3); Blood Urea Nitrogen 16 mg/dL (9-20); Calcium 11.1 mg/dL (8.4-10.2); Carbon Dioxide 38 mmol/L (22-30); Chloride 106 mmol/L (98-107); Estimated Glomerular Filt Rate > 60; Glucose 92 mg/dL (65-110); Lipase 27 U/L (23-300); Potassium 3.6 mmol/L (3.4-5.0); Sodium 144 mmol/L (137-145)
[2023-12-13] MEDS: SODIUM CHLORIDE 0.9% IV 1,000 ML 999 ML IV CONT (10:03)
[2023-12-13 10:15] VITALS: BP 126/73; PULSE 81; RESP 13; O2SAT 99
[2023-12-13 10:17] LABS: Lactic Acid Reflex 1.1 mmol/L (0.7-2.0)
[2023-12-13 10:24] LABS: Add Urine Microscopic? YES; Appearance Urine Turbid (Clear); Bacteria Urine None Seen /hpf; Bilirubin Urine Negative (Negative); Blood Urine Negative (Negative); Color Urine Yellow (Yellow); Glucose Urine UA Negative (Negative); Ketones Urine Negative (Negative); Leukocyte Esterase Ur Negative LEU/UL (Negative); Nitrate Urine Negative (Negative); Non Pathogenic Casts >20; Protein Urine 2+ mg/dL (Negative); RBC Urine 0-2 /hpf (0-2); Specific Grav Ur 1.015 (1.001-1.035); Squamous Epithelial Cell Urine Many /hpf (Few); WBC Urine 0-5 /hpf (0-3); pH Urine 6.5 (5.0-9.0)
[2023-12-13 10:25] LABS: Amorphous Sediment Urine Moderate
[2023-12-13 11:45] VITALS: BP 121/67; PULSE 75; RESP 15; O2SAT 99
[2023-12-13] MEDS: LACTATED RINGERS 1,000 ML 150 ML IV CONT (13:15)
--- NOTE | 2023-12-13 13:16 | PM.IMHP ---
H&P: HPI History of Present Illness Date/Time: 12/13/23 13:16 Chief Complaint: urinary incontinence urinary retention Narrative: This is a 78 year old male with a significant past medical history of anxiety, arthritis, BPH, Cerebral palsy, GERD, seizures, septic bursitis who presented to the hospital with complaints of urinary incontinence and urinary retention. Most of the history and physical was obtained from the family and EMR as patient is non-contributory due to his developmental delay. Patient's sister stated that patient became incontinent of urine [place] with increased weakness. She had concerns for UTI and called EMS for transport to the ER for further evaluation. She also states that he has been having frequent falls which is new for him. She has been trying to get him into a long term for safety concerns. She has been his primary neonatal intensive care nurse along with her sister for the past 25 years but it has become increasing difficult for both of them in the past 2 months to continue to care for him at home as they are elderly themselves. Workup in the hospital included a chest x-ray which showed atelectasis versus pneumonia in the right upper lobe and in the left lung base medially. CT of the abdomen and pelvis show fecal impaction and constipation with stercoral proctitis, chronic osseous findings in the spine. Initial labs showed a white blood cell count of 7.7, total bili 2.3, otherwise unremarkable. UA was obtained which showed turbid urine appearance, 2+ urine protein, many urine squamous epithelial cells, moderate amorphous sediment likely from dehydration. Blood cultures were obtained and are pending. Patient was given 1 L of normal saline and 1 L of LR while in the ED. Review of Systems Review of Systems: developmental delay ROS unobtainable: Yes unobtainable due to mental status [facility] Past Medical History Medical History Anxiety Arthritis Benign prostatic hyperplasia Cerebral palsy Constipation Gastroesophageal reflux disease Intellectual disability Perforated ulcer required surgery Seizures None since childhood. Septic bursitis Surgical History Surgical History History of bursectomy (07/2015) Excision electrode on bursa, left elbow for septic bursitis. History of cataract extraction History of laparotomy For perforated ulcer. Family History Family History Father Acute myocardial infarction, Onset Age: 47 Mother Acute myocardial infarction, Onset Age: 73 Sibling Heart disease Lung disease Social History Social History Social History: Legal guardian: Namita Armstrong and Leydi Tanner, sisters. Code status: Do not resuscitate. Smoking status: Never smoker Alcohol intake: never Substance use: never Substance use type: does not use Do You Feel Safe in your Home?: Yes Lack of Transportation: No Lack of Food: Never True Current Housing: I Have Housing Concerned About Future Housing: Decline to Answer Difficulty Paying Gas/Electric Bills: Decline to Answer Difficulty Paying for Meds: Decline to Answer Currently Unemployed: Decline to Answer Education: Never Attended/Kindergarten Only Difficulty w/ Childcare or Family Care: No Living arrangements: with family Additional living arrangements comments: Lives with sister who is his legal guardian. Wheelchair-bound now but can stand and pivot. Spiritual care concerns: No Meds Home Medications and Allergies Home Medications Medication Instructions Recorded Confirmed Type tamsulosin 0.4 mg capsule 0.8 mg PO DAILY #180 caps 02/05/23 12/13/23 Rx cholecalciferol (vitamin D3) 25 25 mcg PO DAILY 10/05/23 12/13/23 History mcg (1,000 unit) capsule (Vitamin D3)
[2023-12-13 13:17] VITALS: BP 145/70; PULSE 92; RESP 16; O2SAT 97
--- NOTE | 2023-12-13 14:08 | PC.NURSE ---
This patient, Harry Hensley, was admitted to [facility] S[facility] Room 323-01. Patient/family oriented to hospital policies and general routines including ID bracelet, bed and alarms, visiting hours, pain management, procedures, bathroom and other care routines, personal items, smoking policy, room service/diet, and visiting hours. Information on how to activate the Rapid Response Team has been discussed. Patient/Family are encouraged to report perceived risks to care and to ask questions if they do not understand what they are told or what they should do.
[2023-12-13 14:33] VITALS: BMI 17.9
[2023-12-13 16:00] VITALS: BP 140/80; PULSE 89; RESP 20; TEMP 35.8; O2SAT 100
[2023-12-13] MEDS: traMADol HCL (*CRX) 50 MG TABLET PO (21:04)
[2023-12-13 22:00] VITALS: BP 158/86; PULSE 91; RESP 18; TEMP 36.4; O2SAT 98
--- NOTE | 2023-12-13 23:27 | PM.EVENT ---
Event Note Event Note Event Note: Was called by bedside nursing that patient sustained a fall out of the bed onto his left shoulder and left arm striking his face on the floor. They were able to get the patient back in the bed with a manual lift, vital signs are stable. There were no visual signs of injury however he is nonverbal and noncontributory. We will go ahead and send him for x-ray of his left shoulder, left elbow, left hand, and facial x-rays to rule out any fractures.
[2023-12-14 06:00] VITALS: BP 127/71; PULSE 85; RESP 18; TEMP 36.7; O2SAT 98
[2023-12-14 08:23] LABS: Basophils Percent Auto 0.5 % (0.2-1.2); Eosinophils Percent Auto 0.1 % (0-4.4); Hematocrit 41.2 % (42.0-52.0); Hemoglobin 13.8 g/dL (14.0-18.0); Immature Granulocyte Absolute 0.03 K/mm3 (0.00-0.031); Immature Granulocyte Percent A 0.3 % (0-0.5); Lymphocytes Absolute Auto 0.91 K/mm3 (0.9-3.2); Lymphocytes Percent Auto 10.3 % (18.3-44.2); Mean Corpuscular HGB Conc 33.5 g/dl (32-36); Mean Corpuscular Hemoglobin 31.8 pg (26-34); Mean Corpuscular Volume 94.9 fl (80-100); Mean Platelet Volume 9.5 fl (7.4-10.4); Monocytes Absolute Auto 0.7 K/mm3 (0.1-0.6); Monocytes Percent Auto 7.9 % (2.6-8.5); Neutrophils Absolute Auto 7.2 K/mm3 (1.3-6.7); Neutrophils Percent Auto 80.9 % (45.5-73.1); Platelet Count Result 215 k/mm3 (150-375); Red Blood Count 4.34 M/mm3 (4.6-6.20); Red Cell Distribution Width 13.2 % (11.5-14.5); White Blood Count 8.8 K/mm3 (4.5-10.0)
[2023-12-14 08:38] LABS: Alanine Aminotransferase 49 U/L (6-50); Albumin Level 3.2 g/dL (3.5-5.1); Alkaline Phosphatase 107 U/L (38-126); Anion Gap 3 mmol/L (4-12); Aspartate Amino Transferase 50 U/L (17-59); Bilirubin,Total 2.3 mg/dL (0.2-1.3); Blood Urea Nitrogen 12 mg/dL (9-20); Calcium 10.4 mg/dL (8.4-10.2); Carbon Dioxide 31 mmol/L (22-30); Chloride 106 mmol/L (98-107); Estimated CRCL calculation 78 ml/min; Estimated Glomerular Filt Rate > 60; Glucose 97 mg/dL (65-110); Potassium 3.1 mmol/L (3.4-5.0); Sodium 140 mmol/L (137-145)
[2023-12-14 08:53] VITALS: O2SAT 96
[2023-12-14] MEDS: TAMSULOSIN HCL 0.4 MG CAPSULE 0.8 MG PO (08:59)
[2023-12-14] MEDS: traMADol HCL (*CRX) 50 MG TABLET PO ×2 (08:59→20:47)
[2023-12-14] MEDS: FINASTERIDE 5 MG TABLET PO (08:59)
[2023-12-14] MEDS: CHOLECALCIFEROL 1,000 UNITS TABLET 1000 UNITS PO (09:00)
[2023-12-14] MEDS: ENOXAPARIN 40 MG/0.4 ML SYRINGE SUB-Q (09:00)
[2023-12-14] MEDS: PANTOPRAZOLE 40 MG TABLET PO (09:00)
--- NOTE | 2023-12-14 12:13 | P.PNIM_ITS ---
Progress Note: A&P Assessment and Plan (1) Acute constipation: Code(s): K59.00 - Constipation, unspecified Status: Acute Assessment and Plan: 12/13/23: * CT of the abdomen and pelvis shown fecal impaction and constipation with stercoral proctitis, chronic osseous findings in the spine * likely the cause of his urinary retention and urinary incontinence * Will give a Fleet's enema today * continue MiraLax daily 12/14/23: * patient had 2 bowel movements yesterday and 1 today * will check KUB today * continue MiraLax daily (2) Dehydration: Code(s): E86.0 - Dehydration Status: Acute Assessment and Plan: 12/13/23: * patient given 1 L of normal saline and 1 L of LR while in the ED * continue IV fluids x1 bag * monitor I&O * encourage p.o. intake, currently getting thickened liquids due to some dysphagia 12/14/23: * euvolemic * monitor I&O (3) Acute urinary retention: Code(s): R33.8 - Other retention of urine Status: Acute Assessment and Plan: 12/13/23: * patient was straight cathed in the ED. * UA showed turbid appearance, 2+ urine protein, many urine squamous epithelial cells, moderate amorphous sediment, greater than 20 urine cast, otherwise unremarkable * CT showing fecal impaction and constipation with sterile coral proctitis likely the cause of the urinary retention 12/14/23: * urine culture negative * blood culture showing no growth to date on preliminary read (4) Fall: Code(s): W19.XXXA - Unspecified fall, initial encounter Status: Acute Assessment and Plan: 12/14/23: * patient sustained a fall with head injury out of bed last night * considering he is noncontributory due to his developmental delay we sent him for imaging which was negative for any acute finding * continue fall precautions * room near in nurse's station (5) BPH (benign prostatic hyperplasia): Qualifiers: Lower urinary tract symptom detail: weak urinary stream Lower urinary tract symptom presence: symptoms present Qualified Code(s): N40.1 - Benign prostatic hyperplasia with lower urinary tract symptoms; R39.12 - Poor urinary stream Code(s): N40.0 - Benign prostatic hyperplasia without lower urinary tract symptoms Status: Acute Assessment and Plan: 12/13/23: * continue tamsulosin 12/14/23: * no change to current treatment plan (6) Cerebral palsy: Code(s): G80.9 - Cerebral palsy, unspecified Status: Acute Assessment and Plan: 12/13/23: * developmental delay. family unable to care for patient at home and is looking at longterm placement * Case coordination consulted * PT/OT ordered--patient is wheelchair bound however has had frequent falls due to weakness with tranfers. 12/14/23: * PT and OT to eval today (7) GERD (gastroesophageal reflux disease): Qualifiers: Esophagitis presence: without esophagitis Qualified Code(s): K21.9 - Gastro-esophageal reflux disease without esophagitis Code(s): K21.9 - Gastro-esophageal reflux disease without esophagitis Status: Acute Assessment and Plan: 12/13/23: * will start Protonix 12/14/23: * no change to current treatment plan (8) Protein calorie malnutrition: Code(s): E46 - Unspecified protein-calorie malnutrition Status: Acute Assessment and Plan: 12/13/23: * 14 pound weight loss in the past 2 months * Recently admitted for aspiration pneumonia and had a
--- NOTE | 2023-12-14 12:13 | PM.IMPN ---
Progress Note: A&P Assessment and Plan (1) Acute constipation: Code(s): K59.00 - Constipation, unspecified Status: Acute Assessment and Plan: 12/13/23: CT of the abdomen and pelvis shown fecal impaction and constipation with stercoral proctitis, chronic osseous findings in the spine likely the cause of his urinary retention and urinary incontinence Will give a Fleet's enema today continue MiraLax daily 12/14/23: patient had 2 bowel movements yesterday and 1 today will check KUB today continue MiraLax daily (2) Dehydration: Code(s): E86.0 - Dehydration Status: Acute Assessment and Plan: 12/13/23: patient given 1 L of normal saline and 1 L of LR while in the ED continue IV fluids x1 bag monitor I&O encourage p.o. intake, currently getting thickened liquids due to some dysphagia 12/14/23: euvolemic monitor I&O (3) Acute urinary retention: Code(s): R33.8 - Other retention of urine Status: Acute Assessment and Plan: 12/13/23: patient was straight cathed in the ED. UA showed turbid appearance, 2+ urine protein, many urine squamous epithelial cells, moderate amorphous sediment, greater than 20 urine cast, otherwise unremarkable CT showing fecal impaction and constipation with sterile coral proctitis likely the cause of the urinary retention 12/14/23: urine culture negative blood culture showing no growth to date on preliminary read (4) Fall: Code(s): W19.XXXA - Unspecified fall, initial encounter Status: Acute Assessment and Plan: 12/14/23: patient sustained a fall with head injury out of bed last night considering he is noncontributory due to his developmental delay we sent him for imaging which was negative for any acute finding continue fall precautions room near in nurse's station (5) BPH (benign prostatic hyperplasia): Qualifiers: Lower urinary tract symptom detail: weak urinary stream Lower urinary tract symptom presence: symptoms present Qualified Code(s): N40.1 - Benign prostatic hyperplasia with lower urinary tract symptoms; R39.12 - Poor urinary stream Code(s): N40.0 - Benign prostatic hyperplasia without lower urinary tract symptoms Status: Acute Assessment and Plan: 12/13/23: continue tamsulosin 12/14/23: no change to current treatment plan (6) Cerebral palsy: Code(s): G80.9 - Cerebral palsy, unspecified Status: Acute Assessment and Plan: 12/13/23: developmental delay. family unable to care for patient at home and is looking at fpc placement Case coordination consulted PT/OT ordered--patient is wheelchair bound however has had frequent falls due to weakness with tranfers. 12/14/23: PT and OT to eval today (7) GERD (gastroesophageal reflux disease): Qualifiers: Esophagitis presence: without esophagitis Qualified Code(s): K21.9 - Gastro-esophageal reflux disease without esophagitis Code(s): K21.9 - Gastro-esophageal reflux disease without esophagitis Status: Acute Assessment and Plan: 12/13/23: will start Protonix 12/14/23: no change to current treatment plan (8) Protein calorie malnutrition: Code(s): E46 - Unspecified protein-calorie malnutrition Status: Acute Assessment and Plan: 12/13/23: 14 pound weight loss in the past 2 months Recently admitted for aspiration pneumonia and had a barium swallow study with recommendations for thickened liquids and moist and minced food. Patient does not have any teeth to chew his food cut and print machine operator consulted. 12/14/23: no change to current treatment plan Time Spent With Patient Time with patient: 15 - 25 minutes Subjective Date/time seen: 12/14/23 12:13 Interval history: Interval history: This is a 78 year old male with a significant past medical history of anxiety, arthritis, BPH, Cerebral palsy, G
[2023-12-14 14:00] VITALS: BP 121/71; PULSE 57; RESP 14; TEMP 36.2; O2SAT 94
[2023-12-14 20:17] VITALS: BP 117/64; PULSE 85; RESP 16; TEMP 36.7; O2SAT 98
[2023-12-15 05:14] VITALS: BP 131/66; PULSE 80; RESP 18; TEMP 36.3; O2SAT 96
[2023-12-15 06:24] LABS: Basophils Percent Auto 0.5 % (0.2-1.2); Eosinophils Percent Auto 0.6 % (0-4.4); Hematocrit 40.1 % (42.0-52.0); Hemoglobin 13.4 g/dL (14.0-18.0); Immature Granulocyte Absolute 0.03 K/mm3 (0.00-0.031); Immature Granulocyte Percent A 0.5 % (0-0.5); Lymphocytes Absolute Auto 1.05 K/mm3 (0.9-3.2); Lymphocytes Percent Auto 16.7 % (18.3-44.2); Mean Corpuscular HGB Conc 33.4 g/dl (32-36); Mean Corpuscular Hemoglobin 32.3 pg (26-34); Mean Corpuscular Volume 96.6 fl (80-100); Mean Platelet Volume 9.6 fl (7.4-10.4); Monocytes Absolute Auto 0.7 K/mm3 (0.1-0.6); Monocytes Percent Auto 10.3 % (2.6-8.5); Neutrophils Absolute Auto 4.5 K/mm3 (1.3-6.7); Neutrophils Percent Auto 71.4 % (45.5-73.1); Platelet Count Result 210 k/mm3 (150-375); Red Blood Count 4.15 M/mm3 (4.6-6.20); White Blood Count 6.3 K/mm3 (4.5-10.0)
[2023-12-15 06:31] LABS: Alanine Aminotransferase 48 U/L (6-50); Albumin Level 3.1 g/dL (3.5-5.1); Alkaline Phosphatase 104 U/L (38-126); Anion Gap 3 mmol/L (4-12); Aspartate Amino Transferase 50 U/L (17-59); Bilirubin,Total 2.1 mg/dL (0.2-1.3); Blood Urea Nitrogen 16 mg/dL (9-20); Carbon Dioxide 34 mmol/L (22-30); Chloride 103 mmol/L (98-107); Estimated CRCL calculation 66 ml/min; Estimated Glomerular Filt Rate > 60; Glucose 89 mg/dL (65-110); Potassium 3.2 mmol/L (3.4-5.0); Sodium 140 mmol/L (137-145)
[2023-12-15] MEDS: FINASTERIDE 5 MG TABLET PO (08:43)
[2023-12-15] MEDS: PANTOPRAZOLE 40 MG TABLET PO (08:43)
[2023-12-15] MEDS: traMADol HCL (*CRX) 50 MG TABLET PO ×2 (08:43→20:17)
[2023-12-15] MEDS: TAMSULOSIN HCL 0.4 MG CAPSULE 0.8 MG PO (08:43)
[2023-12-15] MEDS: CHOLECALCIFEROL 1,000 UNITS TABLET 1000 UNITS PO (08:44)
--- NOTE | 2023-12-15 10:30 | PM.IMPN ---
Progress Note: A&P Assessment and Plan (1) Acute constipation: Code(s): K59.00 - Constipation, unspecified Status: Acute Assessment and Plan: 12/13/23: CT of the abdomen and pelvis shown fecal impaction and constipation with stercoral proctitis, chronic osseous findings in the spine likely the cause of his urinary retention and urinary incontinence Will give a Fleet's enema today continue MiraLax daily 12/14/23: patient had 2 bowel movements yesterday and 1 today will check KUB today continue MiraLax daily 12/15/23: KUB showing distended small and large bowel- likely due to immobility Continues to have BMs Continue Miralax (2) Dehydration: Code(s): E86.0 - Dehydration Status: Acute Assessment and Plan: 12/13/23: patient given 1 L of normal saline and 1 L of LR while in the ED continue IV fluids x1 bag monitor I&O encourage p.o. intake, currently getting thickened liquids due to some dysphagia 12/14/23: euvolemic monitor I&O 12/15/23: No change to current treatment plan (3) Acute urinary retention: Code(s): R33.8 - Other retention of urine Status: Acute Assessment and Plan: 12/13/23: patient was straight cathed in the ED. UA showed turbid appearance, 2+ urine protein, many urine squamous epithelial cells, moderate amorphous sediment, greater than 20 urine cast, otherwise unremarkable CT showing fecal impaction and constipation with sterile coral proctitis likely the cause of the urinary retention 12/14/23: urine culture negative blood culture showing no growth to date on preliminary read 12/15/23: No change to current treatment plan (4) Fall: Code(s): W19.XXXA - Unspecified fall, initial encounter Status: Acute Assessment and Plan: 12/14/23: patient sustained a fall with head injury out of bed last night considering he is noncontributory due to his developmental delay we sent him for imaging which was negative for any acute finding continue fall precautions room near in nurse's station 12/15/23: D/C safety 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 (5) BPH (benign prostatic hyperplasia): Qualifiers: Lower urinary tract symptom detail: weak urinary stream Lower urinary tract symptom presence: symptoms present Qualified Code(s): N40.1 - Benign prostatic hyperplasia with lower urinary tract symptoms; R39.12 - Poor urinary stream Code(s): N40.0 - Benign prostatic hyperplasia without lower urinary tract symptoms Status: Acute Assessment and Plan: 12/13/23: continue tamsulosin 12/14/23: no change to current treatment plan (6) Cerebral palsy: Code(s): G80.9 - Cerebral palsy, unspecified Status: Acute Assessment and Plan: 12/13/23: developmental delay. family unable to care for patient at home and is looking at half-way placement Case coordination consulted PT/OT ordered--patient is wheelchair bound however has had frequent falls due to weakness with tranfers. 12/14/23: PT and OT to eval today 12/15/23: No change to current treatment plan (7) GERD (gastroesophageal reflux disease): Qualifiers: Esophagitis presence: without esophagitis Qualified Code(s): K21.9 - Gastro-esophageal reflux disease without esophagitis Code(s): K21.9 - Gastro-esophageal reflux disease without esophagitis Status: Acute Assessment and Plan: 12/13/23: will start Protonix 12/14/23: no change to current treatment plan (8) Protein calorie malnutrition: Code(s): E46 - Unspecified protein-calorie malnutrition Status: Acute Assessment and Plan: 12/13/23: 14 pound weight loss in the past 2 months Recently admitted for aspiration pneumonia and had a barium swallow study with recommendations for thickened liquids and moist and minced food.
--- NOTE | 2023-12-15 10:30 | P.PNIM_ITS ---
Progress Note: A&P Assessment and Plan (1) Acute constipation: Code(s): K59.00 - Constipation, unspecified Status: Acute Assessment and Plan: 12/13/23: * CT of the abdomen and pelvis shown fecal impaction and constipation with stercoral proctitis, chronic osseous findings in the spine * likely the cause of his urinary retention and urinary incontinence * Will give a Fleet's enema today * continue MiraLax daily 12/14/23: * patient had 2 bowel movements yesterday and 1 today * will check KUB today * continue MiraLax daily 12/15/23: * KUB showing distended small and large bowel- likely due to immobility * Continues to have BMs * Continue Miralax (2) Dehydration: Code(s): E86.0 - Dehydration Status: Acute Assessment and Plan: 12/13/23: * patient given 1 L of normal saline and 1 L of LR while in the ED * continue IV fluids x1 bag * monitor I&O * encourage p.o. intake, currently getting thickened liquids due to some dysphagia 12/14/23: * euvolemic * monitor I&O 12/15/23: * No change to current treatment plan (3) Acute urinary retention: Code(s): R33.8 - Other retention of urine Status: Acute Assessment and Plan: 12/13/23: * patient was straight cathed in the ED. * UA showed turbid appearance, 2+ urine protein, many urine squamous epithelial cells, moderate amorphous sediment, greater than 20 urine cast, otherwise unremarkable * CT showing fecal impaction and constipation with sterile coral proctitis likely the cause of the urinary retention 12/14/23: * urine culture negative * blood culture showing no growth to date on preliminary read 12/15/23: * No change to current treatment plan (4) Fall: Code(s): W19.XXXA - Unspecified fall, initial encounter Status: Acute Assessment and Plan: 12/14/23: * patient sustained a fall with head injury out of bed last night * considering he is noncontributory due to his developmental delay we sent him for imaging which was negative for any acute finding * continue fall precautions * room near in nurse's station 12/15/23: * D/C vice president safety * Continue fall precautions * Room near nurses's station * Use of bed alarms. (5) BPH (benign prostatic hyperplasia): Qualifiers: Lower urinary tract symptom detail: weak urinary stream Lower urinary tract symptom presence: symptoms present Qualified Code(s): N40.1 - Benign prostatic hyperplasia with lower urinary tract symptoms; R39.12 - Poor urinary stream Code(s): N40.0 - Benign prostatic hyperplasia without lower urinary tract symptoms Status: Acute Assessment and Plan: 12/13/23: * continue tamsulosin 12/14/23: * no change to current treatment plan (6) Cerebral palsy: Code(s): G80.9 - Cerebral palsy, unspecified Status: Acute Assessment and Plan: 12/13/23: * developmental delay. family unable to care for patient at home and is looking at care home placement * Case coordination consulted * PT/OT ordered--patient is wheelchair bound however has had frequent falls due to weakness with tranfers. 12/14/23: * PT and OT to eval today 12/15/23: * No change to current treatment plan (7) GERD (gastroesophageal reflux disease): Qualifiers: Esophagitis presence: without esophagitis Qualified Code(s): K21.9 - Gastro-esophageal reflux disease without esophagitis Code(s): K21.9 - Gastro-esophageal reflux dise
--- NOTE | 2023-12-15 10:47 | PC.NURSE ---
Joseph porrased for patient at 10:45 on 12/15/2023.
[2023-12-15] MEDS: polyethylene glycoL 3350 17 GM POWD.PACK PO (12:28)
[2023-12-15] MEDS: LACTULOSE ENEMA 200 GM/1,000 ML ENEMA RECTAL (12:28)
[2023-12-15 14:00] VITALS: BP 116/56; PULSE 77; RESP 18; TEMP 36.6; O2SAT 100
[2023-12-15] MEDS: ACETAMINOPHEN 325 MG TABLET 650 MG PO (20:17)
[2023-12-15 21:02] VITALS: BP 146/77; PULSE 100; RESP 16; TEMP 36.4; O2SAT 98
[2023-12-16 05:25] VITALS: BP 164/60; PULSE 92; RESP 16; TEMP 36.3; O2SAT 100
[2023-12-16 06:47] LABS: Basophils Percent Auto 0.4 % (0.2-1.2); Eosinophils Percent Auto 0.1 % (0-4.4); Hemoglobin 13.5 g/dL (14.0-18.0); Immature Granulocyte Absolute 0.04 K/mm3 (0.00-0.031); Immature Granulocyte Percent A 0.5 % (0-0.5); Lymphocytes Absolute Auto 0.86 K/mm3 (0.9-3.2); Mean Corpuscular HGB Conc 32.9 g/dl (32-36); Mean Corpuscular Hemoglobin 31.3 pg (26-34); Mean Corpuscular Volume 95.1 fl (80-100); Mean Platelet Volume 9.1 fl (7.4-10.4); Monocytes Absolute Auto 0.7 K/mm3 (0.1-0.6); Monocytes Percent Auto 9.2 % (2.6-8.5); Neutrophils Absolute Auto 6.2 K/mm3 (1.3-6.7); Neutrophils Percent Auto 78.8 % (45.5-73.1); Platelet Count Result 207 k/mm3 (150-375); Red Blood Count 4.31 M/mm3 (4.6-6.20); White Blood Count 7.9 K/mm3 (4.5-10.0)
[2023-12-16 06:54] LABS: Alanine Aminotransferase 51 U/L (6-50); Albumin Level 3.1 g/dL (3.5-5.1); Alkaline Phosphatase 117 U/L (38-126); Anion Gap 4 mmol/L (4-12); Aspartate Amino Transferase 52 U/L (17-59); Bilirubin,Total 2.3 mg/dL (0.2-1.3); Blood Urea Nitrogen 17 mg/dL (9-20); Calcium 10.1 mg/dL (8.4-10.2); Carbon Dioxide 33 mmol/L (22-30); Chloride 103 mmol/L (98-107); Estimated CRCL calculation 58 ml/min; Estimated Glomerular Filt Rate > 60; Glucose 81 mg/dL (65-110); Potassium 3.6 mmol/L (3.4-5.0); Sodium 140 mmol/L (137-145)
[2023-12-16] MEDS: PANTOPRAZOLE 40 MG TABLET PO (08:06)
[2023-12-16] MEDS: polyethylene glycoL 3350 17 GM POWD.PACK PO (08:06)
[2023-12-16] MEDS: TAMSULOSIN HCL 0.4 MG CAPSULE 0.8 MG PO (08:06)
[2023-12-16] MEDS: CHOLECALCIFEROL 1,000 UNITS TABLET 1000 UNITS PO (08:06)
[2023-12-16] MEDS: traMADol HCL (*CRX) 50 MG TABLET PO (08:06)
[2023-12-16] MEDS: FINASTERIDE 5 MG TABLET PO (08:06)
--- NOTE | 2023-12-16 10:55 | PM.DS ---
DS: Admitting Diagnosis Discharge Date 12/16/23 Admitting Diagnosis Acute constipation Acute urinary retention Dehydration BPH DS: Discharge Diagnosis Discharge Diagnosis (1) Acute constipation: Code(s): K59.00 - Constipation, unspecified Status: Acute (2) Dehydration: Code(s): E86.0 - Dehydration Status: Acute (3) Acute urinary retention: Code(s): R33.8 - Other retention of urine Status: Acute (4) Fall: Code(s): W19.XXXA - Unspecified fall, initial encounter Status: Acute (5) BPH (benign prostatic hyperplasia): Qualifiers: Lower urinary tract symptom detail: weak urinary stream Lower urinary tract symptom presence: symptoms present Qualified Code(s): N40.1 - Benign prostatic hyperplasia with lower urinary tract symptoms; R39.12 - Poor urinary stream Code(s): N40.0 - Benign prostatic hyperplasia without lower urinary tract symptoms Status: Acute (6) Cerebral palsy: Code(s): G80.9 - Cerebral palsy, unspecified Status: Acute (7) GERD (gastroesophageal reflux disease): Qualifiers: Esophagitis presence: without esophagitis Qualified Code(s): K21.9 - Gastro-esophageal reflux disease without esophagitis Code(s): K21.9 - Gastro-esophageal reflux disease without esophagitis Status: Acute (8) Protein calorie malnutrition: Code(s): E46 - Unspecified protein-calorie malnutrition Status: Acute DS: Summary Hospital Course Reason for hospitalization: Acute constipation Acute urinary retention Dehydration BPH Hospital Course: This is a 78 year old male with a significant past medical history of anxiety, arthritis, BPH, Cerebral palsy, GERD, seizures, septic bursitis who presented to the hospital with complaints of urinary incontinence and urinary retention. Most of the history and physical was obtained from the family and EMR as patient is non-contributory due to his developmental delay. Patient's sister stated that patient became incontinent of urine [place] with increased weakness. She had concerns for UTI and called EMS for transport to the ER for further evaluation. She also states that he has been having frequent falls which is new for him. She has been trying to get him into a fdc for safety concerns. She has been his primary pediatric critical care nurse along with her sister for the past 25 years but it has become increasing difficult for both of them in the past 2 months to continue to care for him at home as they are elderly themselves. Workup in the hospital included a chest x-ray which showed atelectasis versus pneumonia in the right upper lobe and in the left lung base medially. CT of the abdomen and pelvis show fecal impaction and constipation with stercoral proctitis, chronic osseous findings in the spine. Initial labs showed a white blood cell count of 7.7, total bili 2.3, otherwise unremarkable. UA was obtained which showed turbid urine appearance, 2+ urine protein, many urine squamous epithelial cells, moderate amorphous sediment likely from dehydration. Blood cultures were obtained and are pending. Patient was given 1 L of normal saline and 1 L of LR while in the ED. 12/13/23 Patient sustained a fall out of the bed hitting his head and left shoulder on the floor. He was lifted back to bed and his vital signs were stable. There were no visual signs of injury however he is nonverbal and noncontributory so we went ahead and got x-rays of his left elbow, left shoulder, left hand which did not show any fracture. 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 Face CT was negative for any fracture. Patient is stable for discharge to [facility] today. He had 6 bowel movements yesterday and will be continued on Miralax. VSS, he is afebrile, he is currently on room air. Labs reviewed. Final diagnosis: Acute constipation, dehydration, BPH, acute urinary retention Status at Discharge Cognitive/behavioral status
[2023-12-16 14:00] VITALS: BP 135/62; PULSE 81; RESP 18; TEMP 36.4; O2SAT 96
[2023-12-16 15:08] LABS: SARS-CoV-2 RNA PCR Negative (Negative)
== END 2023-12-16 18:25 ==
LOC: ANHED 12:16 → ANH3MEDSUR 13:34
PROVIDERS: Admitting Provider Family Medicine; Emergency Provider Nurse Practitioner; PCP Nurse Practitioner Family; Visit Provider Nurse Practitioner Acute Care
DX: K56.41 Fecal impaction (principal); E86.0 Dehydration; N40.1 Benign prostatic hyperplasia with lower urinary tract symptoms; R39.12 Poor urinary stream; R33.8 Other retention of urine; R32 Unspecified urinary incontinence; S09.90XA Unspecified injury of head, initial encounter; W06.XXXA Fall from bed, initial encounter; G80.9 Cerebral palsy, unspecified; F79 Unspecified intellectual disabilities; E46 Unspecified protein-calorie malnutrition; Z68.1 Body mass index [BMI] 19.9 or less, adult; K21.9 Gastro-esophageal reflux disease without esophagitis; K62.89 Other specified diseases of anus and rectum; Z11.52 Encounter for screening for COVID-19; Z66 Do not resuscitate; Z79.899 Other long term (current) drug therapy; Z99.3 Dependence on wheelchair
CPT/HCPCS: 36415; 70450; 70486; 71045; 73030; 73080; 73130; 74018; 74177; 80053; 81001; 83605; 83690; 83735; 85025; 87040; 87635; 96360; 97161; 97166; 97530; 97535; 99285; A9270; G0378; J1650; J7030; J7120; Q9967

== ENCOUNTER 2023-12-25 01:28 | Emergency (ER) | payer MEDICARE, SELFPAY ==
[2023-12-25] VITALS (27 sets, daily range): BP systolic 112–124; BP diastolic 54–76; PULSE 70–85; RESP 11–20; TEMP 36.4–36.7; O2SAT 93–100
--- NOTE | ~2023-12-25 | CT_ITS ---
EXAMINATION: CT cervical spine wo con DATE: 12/25/2023 03:42 INDICATION: Neck injury. TECHNIQUE: Computed tomography (CT) of the cervical spine was performed without intravenous contrast. Automated exposure control and iterative reconstruction technique were employed. The dose-length pro duct was 115.03 mGy-cm. COMPARISON: CT cervical spine 01/30/23 FINDINGS: There is mild scarring at the lung apices. There is 15 degrees levoscoliosis of cervical sp ine. There is 2 mm anterolisthesis of C2 on C3, 4 mm anterolisthesis of C4 on C5, and 2 mm anterolist hesis of C7 on T1. There is mild chronic anterior wedging of T1 vertebral body. There is severe osteo arthritis of the C0-C1 facet joints. There is degenerative cystic change in the dens. There is severe ly decreased disc height from C2-C3 through T1-T2. The following disc levels are specifically discuss ed: C2-C3: There is severe bilateral uncovertebral joint osteoarthritis. There is severe bilateral facet joint osteoarthritis. There is mild bilateral neural foraminal stenosis. There is mild central canal stenosis. C3-C4: There is severe right and moderate left uncovertebral joint osteoarthritis. There is severe bi lateral facet joint osteoarthritis. There is moderate right and mild left neural foraminal stenosis. There is mild central canal stenosis. C4-C5: There is severe bilateral uncovertebral joint osteoarthritis. There is severe bilateral facet joint osteoarthritis. There is mild bilateral neural foraminal stenosis. There is mild central canal stenosis. C5-C6: There is moderate right and severe left uncovertebral joint osteoarthritis. There is mild righ t and moderate left facet joint osteoarthritis. There is mild bilateral neural foraminal stenosis. Th ere is mild central canal stenosis. C6-C7: There is severe bilateral uncovertebral joint osteoarthritis. There is severe bilateral facet joint osteoarthritis. There is mild bilateral neural foraminal stenosis. There is mild central canal stenosis. C7-T1: There is severe bilateral uncovertebral joint osteoarthritis. There is severe bilateral facet joint osteoarthritis. There is mild bilateral neural foraminal stenosis. There is mild central canal stenosis. IMPRESSION: 1. No fracture. 2. Severe cervical spondylosis. 3. Cervical levoscoliosis. Reviewed, dictated and finalized at location A.
--- NOTE | ~2023-12-25 | CT_ITS ---
EXAMINATION: CT brain wo con DATE: 12/25/2023 03:42 INDICATION: Head injury. TECHNIQUE: Computed tomography (CT) of the head was performed without intravenous contrast. The mA wa s adjusted according to patient size. Iterative reconstruction technique was employed. The dose-lengt h product was 681.00 mGy-cm. COMPARISON: Head CT 12/13/2023 FINDINGS: There are old infarcts in the right frontal lobe and right basal ganglia. There is no intra cranial hemorrhage, acute infarction, or abnormal intracranial mass lesion. The ventricles are normal in size. There is mild mucosal thickening in the paranasal sinuses. There are likely changes of ocul ar lens replacement surgeries. The mastoid air cells are normal. IMPRESSION: 1. 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 Reviewed, dictated and finalized at location A.
--- NOTE | 2023-12-25 05:11 | ED.GENADULT ---
HPI - General Adult General Chief complaint: Fall Stated complaint: FALL OUT OF BED, LAC ABOVE EYE Time Seen by Provider: 12/25/23 01:57 History of Present Illness HPI narrative: Patient 78-year-old gentleman presents emergency department chief complaint of rolled out of bed. Patient is resident of local nursing facility and has history of cerebral palsy patient is not able to provide communication as to if he is hurting anywhere patient is not on anticoagulation Related Data Home Medications Medication Instructions Recorded Confirmed cholecalciferol (vitamin D3) 25 25 mcg PO DAILY 10/05/23 12/13/23 mcg (1,000 unit) capsule (Vitamin D3) finasteride 5 mg tablet 5 mg PO DAILY 12/13/23 12/13/23 tramadol 50 mg tablet 50 mg PO Q12H 12/13/23 12/13/23 Allergies Allergy/AdvReac Type Severity Reaction Status Date / Time doxycycline Allergy Mild Rash Verified 12/25/23 01:39 Review of Systems Review of Systems: A 10 system review of systems was completed on the patient and is negative except for what is stated in the HPI. Nursing and ancillary documentation was reviewed. [facility] Past Medical History Medical History Anxiety Arthritis Benign prostatic hyperplasia Cerebral palsy Constipation Gastroesophageal reflux disease Intellectual disability Perforated ulcer required surgery Seizures None since childhood. Septic bursitis Surgical History Surgical History History of bursectomy (07/2015) Excision electrode on bursa, left elbow for septic bursitis. History of cataract extraction History of laparotomy For perforated ulcer. Family History Family History Father Acute myocardial infarction, Onset Age: 47 Mother Acute myocardial infarction, Onset Age: 73 Sibling Heart disease Lung disease Social History Social History Social History: Legal guardian: Namita Armstrong and Leydi Tanner, sisters. Code status: Do not resuscitate. Smoking status: Never smoker Alcohol intake: never Substance use: never Substance use type: does not use Do You Feel Safe in your Home?: Yes Lack of Transportation: No Lack of Food: Never True Current Housing: I Have Housing Concerned About Future Housing: Decline to Answer Difficulty Paying Gas/Electric Bills: Decline to Answer Difficulty Paying for Meds: Decline to Answer Currently Unemployed: Decline to Answer Education: Never Attended/Kindergarten Only Difficulty w/ Childcare or Family Care: No Living arrangements: with family Additional living arrangements comments: Lives with sister who is his legal guardian. Wheelchair-bound now but can stand and pivot. Spiritual care concerns: No Exam Narrative: GENERAL: Well-appearing, well-nourished, and in no acute distress. HEAD: Normocephalic, 1.5 cm laceration to left eyebrow. EYES: PERRLA and EOMI. ENT: Nares clear, no rhinorrhea or epistaxis. Mucous membranes moist. NECK: Supple. CHEST: Clear to auscultation. No respiratory distress. HEART: Regular rate and rhythm. No murmur heard. Normal peripheral pulses. ABDOMEN: Soft, nontender, nondistended, normal active bowel sounds. EXTREMITIES: Normal range of motion no pain with range of motion. No edema. SKIN: Warm, dry, no rash. NEURO: No focal deficits. Alert and oriented to baseline. PSYCH: Normal mood and affect. Course Vital Signs Vital signs: Vital Signs Temperature 36.7 C 12/25/23 01:29 Pulse Rate 85 12/25/23 01:29 Respiratory Rate 14 12/25/23 01:29 Blood Pressure 122/59 L 12/25/23 01:29 Pulse Oximetry 97 12/25/23 01:29 Oxygen Delivery Room Air 12/25/23 01:29 Temperature 36.7 C 12/25/23 01:29 Pulse Rate 85 12/25/23 01:29 Respiratory Rate 14 12/25/23 01:29 Blood Pressure 122/59 L 12/25/23 01:29 Pulse Oximetry 97 12/25/23 01:29 Oxygen Delivery Room Air 12/25/23 01:29 Procedures Laceration Laceration 1: Date: 12/25/23 Time: 06:34 Site: face Side (If applicable): left Size (cm): 1.5 Description: linear Depth: simple, single layer Local Anesthetic: lidocaine 1% Amount of anesthesia used (mL): 5 Pre-repair: wound explored, irrigated and irrigated extensively ====== Skin Level ====== Skin layer closed with: prolene Size (cm): 5-0 Number of sutures: 2 Technique: simple, interrupted ====== Subcutaneous Layer ====== ====== Muscle Layer ====== ====== Tendon Layer ====== Medical Decision Making [facility] Narrative Medical decision making narrative: Differential diagnosis includes head injury, intracranial hemorrhage, cervical spine fracture, facial laceration CT head was obtained showed no evidence of acute intracranial hemorrhage, C-spine showed no evidence of fracture The patient is currently at his baseline neurological status. Patient shows no other signs of trauma the laceration was repaired Vital Signs Vital Signs: Vital Signs Temperature 36.7 C 12/25/23 01:29 Pulse Rate 85 12/25/23 01:29 Respiratory Rate 14 12/25/23 01:29 Blood Pressure 122/59 L 12/25/23 01:29 Pulse Oximetry 97 12/25/23 01:29 Oxygen Delivery Room Air 12/25/23 01:29 Temperature 36.7 C 12/25/23 01:29 Pulse Rate 85 12/25/23 01:29 Respiratory Rate 14 12/25/23 01:29 Blood Pressure 122/59 L 12/25/23 01:29 Pulse Oximetry 97 12/25/23 01:29 Oxygen Delivery Room Air 12/25/23 01:29 Discharge Plan Discharge Clinical Impression: Ground-level fall, Head injury Laceration of eyebrow Qualifiers: Encounter type: initial encounter Laterality: left Qualified Code(s): S01.112A - Laceration without foreign body of left eyelid and periocular area, initial encounter Patient Disposition: NH Group Home/Asst Living Condition: Stable Instructions: Antibiotic Form, Laceration (ED), Head Injury (ED) Additional Instructions: Please have the sutures removed in 5-7 days Prescriptions: No Action cholecalciferol (vitamin D3) [Vitamin D3] 25 mcg (1,000 unit) Capsule 25 mcg PO DAILY tramadol 50 mg tablet 50 mg PO Q12H finasteride 5 mg tablet 5 mg PO DAILY polyethylene glycol 3350 [Miralax] 17 gram Powder In Packet 17 g PO QAM Qty: 30 0RF tamsulosin 0.4 mg capsule 0.8 mg PO DAILY Qty: 180 3RF omeprazole 20 mg capsule,delayed release(DR/EC) 20 mg PO DAILY Qty: 90 1RF Follow-up/Referrals: Robert Ford MD [Primary Care Provider] - Time of Disposition: 06:36
--- NOTE | 2023-12-25 05:15 | PC.NURSE ---
5.0 prolene, lac kit, betadine swab, lido% at bedside for edp lipsmeyer to apply sutures.
--- NOTE | 2023-12-25 06:55 | PC.NURSE ---
rn report to [place]
[2023-12-25] MEDS: LIDOCAINE HCL 1% LOCAL INJ 10 ML VIAL (07:11)
--- NOTE | 2023-12-25 08:39 | PC.NURSE ---
Pt is waiting on transportation, family updated on expected time. Pt's family verbalized understanding,
== END 2023-12-25 10:24 ==
PROVIDERS: Emergency Provider Emergency Medicine; PCP Emergency Medicine
DX: S01.112A Laceration without foreign body of left eyelid and periocular area, initial encounter (principal); W06.XXXA Fall from bed, initial encounter; K21.9 Gastro-esophageal reflux disease without esophagitis; F79 Unspecified intellectual disabilities
CPT/HCPCS: 12011; 70450; 72125; 99284; J2003